=== PATIENT | male | born 2000 | race Caucasian/White ===

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

== ENCOUNTER → 2021-02-16 14:30 | Outpatient (BNVA) | payer BC, SELFPAY | PROVIDERS: PCP Family Medicine; Visit Provider Psychiatry & Neurology Psychiatry | DX: F33.2 Major depressive disorder, recurrent severe without psychotic features (principal); F60.3 Borderline personality disorder; F12.20 Cannabis dependence, uncomplicated | CPT/HCPCS: 99204 ==

== ENCOUNTER → 2021-03-28 16:14 | Outpatient (BNVA) | payer BC, SELFPAY | PROVIDERS: PCP Family Medicine; Visit Provider Nurse Practitioner Family | DX: J02.9 Acute pharyngitis, unspecified (principal) | CPT/HCPCS: 87071; 87880 ==

== ENCOUNTER 2021-04-11 00:25 | Emergency (ER) | payer BC, SELFPAY ==
[2021-04-11 00:39] VITALS: BP 103/60; PULSE 72; RESP 18; TEMP 37; O2SAT 98; BMI 19.6
--- NOTE | 2021-04-11 02:19 | ED_ITS ---
HPI - General Adult General: Chief complaint: General Medical Stated complaint: Chewing food then Throat started bleeding Time Seen by Provider: 04/11/21 02:01 History of Present Illness: HPI narrative: Patient is a 20-year-old male comes to the ED with throat pain and bleeding. Patient says that he was eating some chicken wings tonight and then felt something in the back of his throat and he put his finger back there and there was a little bit of red blood. Patient was diagnosed with pharyngitis on March 28 and was put on levofloxacin to treat pharyngitis. Patient completed his last dose of levofloxacin several days ago. He said his sore throat has improved greatly, but does endorse some mild throat soreness still. He also endorses some nasal drainage and congestion. Denies any fever, chills, coughing up blood, shortness of breath, chest pain, abdominal pain, nausea/vomiting, bladder or bowel symptoms. Associated symptoms: Deny chest pain, dyspnea, headache(s), nausea, rash, palp itations or vomiting Review of Systems Const: Denies: fever(s), chills or fatigue Eyes: Denies: change in vision or eye discomfort ENMT: Reports: throat pain; Denies: odynophagia, nasal discharge or nasal congestion Card: Denies: chest pain, palpitations, edema, swelling of feet/ankles, dyspnea on exertion or orthopnea Resp: Denies: dyspnea, productive cough or non-productive cough GI: Denies: abdominal pain, nausea, vomiting, diarrhea, constipation or hematochezia : Denies: flank pain, difficulty urinating, dysuria or hematuria Musc: Denies: neck pain, back pain or extremity swelling Skin/Breast: Denies: rash or new lesions Neuro: Denies: headache(s), numbness in extremities or weakness in extremities PFSH ED PFSH: Social History Smoking and tobacco status: current every day smoker Desire information about substance/drug rehabilitation?: No Adopted: No Marital status: Single Highest education level completed: High School Graduate Current occupational status: employed Physical Exam Const: COMMON NORMALS: no acute distress, patient oriented x3, healthy appearing and alert GENERAL APPEARANCE: cooperative and comfortable HENMT: COMMON NORMALS: normocephalic HEAD & SCALP: normocephalic MOUTH: Normal oral and palatal mucosa present THROAT: uvula midline and posterior oropharynx abnormal (No bleeding seen.) cobblestoning and edema; no foreign body Eye: COMMON NORMALS: Equal, round and reactive pupils present PUPIL: Yes Equal, round and reactive pupils present Neck/C-Spine: COMMON NORMALS: supple GENERAL: Yes normal visual inspection Resp: COMMON NORMALS: normal respiratory effort, No retractions, No use of accessory muscles and clear to auscultation bilaterally AUSCULTATION: clear to auscultation bilaterally Cardio: COMMON NORMALS: regular rate, regular rhythm, S1 normal heart sound present, S2 normal heart sound present, No gallops present (Cardio), No clicks present (Cardio), No murmurs present (Cardio) and Peripheral pulses 2+ throughout RATE: regular rate RHYTHM: regular rhythm HEART SOUNDS: S1 normal heart sound present and S2 normal heart sound present PERIPHERAL PULSES: Peripheral pulses 2+ throughout GI: COMMON NORMALS: Normal to inspection, nondistended, normoactive bowel sounds present, Soft to palpation, non-tender and no masses PALPATION: Yes Soft to palpation : COMMON NORMALS: Yes no CVA tenderness BLADDER/KIDNEY EXAM: Yes no CVA tenderness Back/Pelvis: COMMON NORMALS: no CVA tenderness Extremity: COMMON NORMALS: normal to inspection Neuro: COMMON NORMALS: patient oriented x3 and moves all extremities SENSORIUM/ORIENTATION: Yes alert Skin: GENERAL SKIN EXAM: dry skin Course Vital Signs: Vital signs: Vital Signs Temperature 98.6 F 04/11/21 00:39 Pulse Rate 72 04/11/21 00:39 Respiratory Rate 18 04/11/21 00:39 Blood Pressure 103/60 04/11/21 00:39 Pulse Oximetry 98 04/11/21 00:39 MDM - General Adult MDM Narrative: Medical decision making narrative: Patient is a healthy nontoxic-appearing 20-year-old male comes to the ED with throat pain and some bleeding at the back of throat. Patient was eating chicken wings and he felt something in the back of his throat and he put his finger back there and he had a little bit of red blood on his finger. Patient was recently treated for pharyngitis with levofloxacin and finished taking his antibiotic a couple days ago. His throat pain has improved greatly since completing antibiotic. Here in the ED patient's posterior oropharynx has some cobblestoning and edema seen. No foreign body or bleeding noted. Vitals stable. Patient diagnosed with irritated throat and discharged home. He was told to follow-up with his PCP in 7 to 10 days reevaluation. Return to ED precautions given. Patient understood and agree with plan. Discharge Plan Discharge Patient Disposition: Home Clinical Impression: Irritated throat Condition: Stable Prescriptions: No Action levofloxacin 500 mg tablet 500 mg PO Q24H Qty: 7 RF: 0 escitalopram oxalate [Lexapro] 20 mg tablet 20 mg PO DAILY Qty: 30 RF: 2 trazodone 50 mg tablet 100 mg PO .HS PRN (Reason: insomnia) Qty: 60 RF: 2 Discharge Orders: Discharge ED (Routine); Ordered 04/11/21 Ordered By: Bunny Jain Referrals: Geneva Ponce MD [Primary Care Provider] - Discharge Diet: Regular Discharge Activity: Resume usual activity Activity Restrictions/Additional Instructions: Follow-up with medical provider as directed in 7 to 10 days for reevaluation. Take [id number] ibuprofen or Tylenol for any pain. Return to the ER or your medical provider if condition worsens. Please read and understand discharge instructions. Thank you for choosing [facility] for your healthcare needs today. Please realize this is an emergency room and that we are providing you with a medical screening exam and this may not be complete and all inclusive of all the testing and or work up that you may need to determine your ailment or severity of your illness. It is very important that you follow up as instructed or that you return to the Emergency Department should you have concerns or if your condition changes or worsens in any way. Coding Level of Care Code ED Riffler Tender for Kaushal Rosa
[2021-04-11 02:24] VITALS: BP 112/78; PULSE 68; RESP 16; O2SAT 99
== END 2021-04-11 02:25 | disposition home or self-care (01) ==
PROVIDERS: Emergency Provider Physician Assistant; PCP Family Medicine
DX: J39.2 Other diseases of pharynx (principal); F17.200 Nicotine dependence, unspecified, uncomplicated
CPT/HCPCS: 99281

== ENCOUNTER → 2021-04-18 10:18 | Outpatient (BNVA) | payer BC, SELFPAY | PROVIDERS: PCP Family Medicine; Visit Provider Psychiatry & Neurology Psychiatry | DX: F60.3 Borderline personality disorder (principal); F33.2 Major depressive disorder, recurrent severe without psychotic features; F12.20 Cannabis dependence, uncomplicated | CPT/HCPCS: 99214 ==

== ENCOUNTER 2021-04-26 00:17 | Emergency (ER) | payer BC, MEDICAID, SELFPAY ==
[2021-04-26 00:18] VITALS: BP 123/63; PULSE 86; RESP 18; TEMP 37.4; O2SAT 96; BMI 19.9
--- NOTE | 2021-04-26 00:28 | ECG_ITS ---
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
--- NOTE | 2021-04-26 00:32 | W.ED.NAVMDI ---
HPI - Nausea/Vomiting/Diarrhea General: Chief complaint: Nausea/Vomiting/Diarrhea Stated complaint: DRUG USE/NAUSEA Time Seen by Provider: 04/26/21 00:18 Source: patient and EMS Mode of arrival: EMS Limitations: no limitations History of Present Illness: HPI Narrative: 20-year-old male states he did 2 g of cocaine roughly an hour and half to 2 hours ago. He states he started with some diaphoresis and nausea and vomiting. He states that he started to feel improved currently. He states he was getting concerned that he done too much. Patient is resting comfortably currently. He has no chest pain. Denies any shortness of breath. Denies any worsening improving factors. Associated nausea: Yes Associated symtoms: Reports nausea; Denies chest pain, dysuria or headache(s) Review of Systems Const: Denies: fever(s), chills, body aches or change in appetite Eyes: Denies: blurry vision or eye discomfort ENMT: Denies: throat pain or dental pain Card: Denies: chest pain Resp: Denies: dyspnea GI: Reports: nausea and vomiting : Denies: dysuria Musc: Denies: neck pain or back pain Skin/Breast: Denies: rash Neuro: Denies: headache(s) Psych: Denies: depression Oli/Lymph: Denies: easy bruising All/Imm: Denies: urticaria PFS ED PFSH: Social History (Updated 04/18/21 @ 10:36 by River Murray LPN) Smoking and tobacco status: current every day smoker Desire information about substance/drug rehabilitation?: No Adopted: No Marital status: Single Highest education level completed: High School Graduate Current occupational status: employed Physical Exam Const: COMMON NORMALS: no acute distress, patient oriented x3 and healthy appearing HENMT: COMMON NORMALS: normocephalic and atraumatic HEAD & SCALP: normocephalic and atraumatic Eye: COMMON NORMALS: Equal, round and reactive pupils present and EOMs intact bilaterally PUPIL: Yes Equal, round and reactive pupils present Neck/C-Spine: COMMON NORMALS: full ROM and supple Chest: COMMONS NORMALS: normal inspection of the chest and normal palpation of entire chest wall Resp: COMMON NORMALS: normal respiratory effort, No retractions, No use of accessory muscles and clear to auscultation bilaterally AUSCULTATION: clear to auscultation bilaterally Cardio: COMMON NORMALS: regular rate, regular rhythm and No murmurs present (Cardio) RATE: regular rate RHYTHM: regular rhythm GI: COMMON NORMALS: Normal to inspection, nondistended, normoactive bowel sounds present, Soft to palpation, non-tender and no masses PALPATION: Yes Soft to palpation Extremity: COMMON NORMALS: normal to inspection and full ROM Neuro: COMMON NORMALS: patient oriented x3, moves all extremities and no focal motor deficits Psych: COMMON NORMALS: mental status grossly normal, Normal thought process present and cooperative THOUGHT PROCESS: Normal thought process present Skin: COMMON NORMALS: no rashes or lesions noted and no wounds GENERAL SKIN EXAM: no rashes or lesions noted Course Vital Signs: Vital signs: Vital Signs Temperature 99.3 F 04/26/21 00:18 Pulse Rate 86 04/26/21 00:18 Respiratory Rate 18 04/26/21 00:18 Blood Pressure 123/63 04/26/21 00:18 Pulse Oximetry 96 04/26/21 00:18 MDM - Nausea/Vomiting/Diarrhea MDM Narrative: Medical decision making narrative: Patient presents with cocaine use. He has no signs of overdose. Patient is well-appearing here and feels much improved. He is stable for discharge is to follow-up with PCP and return if worsening. EKG Data^: EKG 1: Attestation: I personally reviewed and interpreted this EKG as follows: EKG interpretation date: 04/26/21 EKG interpretation time: 00:39 Interpretation: nsr hr [address] or t wave abnormalities qrs 90 qtc 386 Discharge Plan Discharge Patient Disposition: Home Clinical Impression: Cocaine abuse Condition: Stable Prescriptions: No Action escitalopram oxalate [Lexapro] 20 mg tablet 20 mg PO DAILY Qty: 30 RF: 2 trazodone 50 mg tablet 100 mg PO .HS PRN (Reason: insomnia) Qty: 60 RF: 2 propranolol 20 mg tablet 20 mg PO BID PRN (Reason: anxiety) Qty: 60 RF: 2 levofloxacin 500 mg tablet 500 mg PO Q24H Qty: 7 RF: 0 Discharge Orders: Discharge ED (Routine); Ordered 04/26/21 Ordered By: Vern Parra Referrals: Geneva Ponce MD [Primary Care Provider] - 1-3 days Discharge Diet: Advance as tolerated Discharge Activity: Resume usual activity Patient Instructions: Cocaine Abuse (ED) Coding Level of Care Code ED Trimming Press Operator for Kaushal Fwd Exam Comprehensive
[2021-04-26 00:54] VITALS: BP 116/60; PULSE 75; RESP 16; O2SAT 95
[2021-04-26] MEDS: LORazepam 2 mg/mL INJ 1 mL 1 MG IVP (00:54)
[2021-04-26 00:56] VITALS: BP 116/60; PULSE 75; RESP 16; TEMP 37.4; O2SAT 95
== END 2021-04-26 01:02 | disposition home or self-care (01) ==
PROVIDERS: Emergency Provider Emergency Medicine; PCP Family Medicine
DX: F14.10 Cocaine abuse, uncomplicated (principal); F17.200 Nicotine dependence, unspecified, uncomplicated
CPT/HCPCS: 93005; 96374; 99283; J2060

== ENCOUNTER → 2021-06-12 16:03 | Outpatient (BNVA) | payer BC, MEDICAID, SELFPAY | PROVIDERS: PCP Family Medicine; Visit Provider Family Medicine | DX: J02.9 Acute pharyngitis, unspecified (principal); H66.93 Otitis media, unspecified, bilateral | CPT/HCPCS: 87071; 87880 ==

== ENCOUNTER → 2021-07-04 09:52 | Outpatient (BNVA) | payer BC, SELFPAY | PROVIDERS: PCP Family Medicine; Visit Provider Psychiatry & Neurology Psychiatry | DX: F60.3 Borderline personality disorder (principal); F12.20 Cannabis dependence, uncomplicated; F33.2 Major depressive disorder, recurrent severe without psychotic features | CPT/HCPCS: 99213 ==

== ENCOUNTER 2021-08-24 13:16 | Emergency (ER) | payer BC, MEDICAID, SELFPAY ==
[2021-08-24 13:48] VITALS: BP 118/59; PULSE 76; RESP 16; TEMP 36.7; O2SAT 97
--- NOTE | 2021-08-24 13:58 | ED_ITS ---
HPI - Ear Problem General: Chief complaint: Ear Stated complaint: BLOOD COMING OUT OF [facility] EAR/PAINFUL Time Seen by Provider: 08/24/21 13:46 History of Present Illness: HPI Narrative: Patient had blood in his right ear canal today. Denies any recent infection but was treated for ear infection 2 months ago. Complaint: other (Blood in ear canal) Location: right ear Severity: mild Associated symptoms: Denies fever(s) or headache(s) Review of Systems Const: Denies: fever(s), chills or body aches Eyes: Denies: change in vision or blurry vision ENMT: Reports: other (Blood in ear canal on right side since this morning); Denies: throat pain or nasal congestion Card: Denies: chest pain or dyspnea on exertion Resp: Denies: dyspnea, productive cough or non-productive cough GI: Reports: abdominal pain, nausea and vomiting : Reports: difficulty urinating Musc: Reports: extremity pain Skin/Breast: Denies: rash Neuro: Denies: headache(s) Psych: Denies: anxiety or depression Oli/Lymph: Denies: easy bruising PFSH ED PFSH: Medical History Psychiatric care Social History Smoking and tobacco status: current every day smoker Desire information about substance/drug rehabilitation?: No Adopted: No Marital status: Single Highest education level completed: High School Graduate Current occupational status: employed Physical Exam Const: COMMON NORMALS: no acute distress GENERAL APPEARANCE: cooperative HENMT: COMMON NORMALS: external ears normal and TM's normal bilaterally EXTERNAL EAR: Yes external ears normal EXTERNAL AUDITORY CANAL: Abnormal EAC present EAC laterality: right (Peers to be an abrasion with dried blood in the canal) TYMPANIC MEMBRANE: TM's normal bilaterally THROAT: posterior oropharynx normal Resp: COMMON NORMALS: normal respiratory effort Psych: COMMON NORMALS: mental status grossly normal APPEARANCE: Yes grossly normal Course Vital Signs: Vital signs: Vital Signs Temperature 98.1 F 08/24/21 13:48 Pulse Rate 76 08/24/21 13:48 Respiratory Rate 16 08/24/21 13:48 Blood Pressure 118/59 08/24/21 13:48 Pulse Oximetry 97 08/24/21 13:48 Discharge Plan Discharge Patient Disposition: Home Clinical Impression: Abrasion of ear canal Qualifiers: Encounter type: initial encounter Laterality: right Qualified Code(s): S00.411A - Abrasion of right ear, initial encounter Condition: Stable Prescriptions: New [id number]-[id number]-XB 3.5-10,000-1 mg/mL-unit/mL-% solution 4 drp otic (ear) Q8H 3 Days Qty: 10 RF: 0 No Action propranolol 20 mg tablet 20 mg PO BID PRN (Reason: anxiety) Qty: 60 RF: 2 escitalopram oxalate [Lexapro] 20 mg tablet 20 mg PO DAILY Qty: 30 RF: 2 trazodone 50 mg tablet 100 mg PO .HS PRN (Reason: insomnia) Qty: 60 RF: 2 Discharge Orders: Discharge ED (Routine); Ordered 08/24/21 Ordered By: Pavel Hernandez Referrals: Geneva Ponce MD [Primary Care Provider] - Discharge Diet: Usual diet Discharge Activity: Resume usual activity Patient Instructions: Ear Abrasion (ED) Activity Restrictions/Additional Instructions: Follow-up with medical provider as directed. Take medications as prescribed. Return to the ER or your medical provider if condition worsens. Please read and understand discharge instructions. If any questions ask please. Coding Level of Care Code ED Partnership Marketing Manager for Kaushal Rosa
== END 2021-08-24 14:17 | disposition home or self-care (01) ==
PROVIDERS: Emergency Provider Nurse Practitioner Family; PCP Family Medicine
DX: S00.411A Abrasion of right ear, initial encounter (principal); X58.XXXA Exposure to other specified factors, initial encounter; F17.210 Nicotine dependence, cigarettes, uncomplicated
CPT/HCPCS: 99281

== ENCOUNTER → 2021-09-26 10:15 | Outpatient (BNVA) | payer BC, MEDICAID, SELFPAY | PROVIDERS: PCP Family Medicine; Visit Provider Psychiatry & Neurology Psychiatry | DX: F33.2 Major depressive disorder, recurrent severe without psychotic features (principal); F60.3 Borderline personality disorder; F12.20 Cannabis dependence, uncomplicated | CPT/HCPCS: 99213 ==

== ENCOUNTER → 2021-12-21 09:38 | Outpatient (BNVA) | payer BC, MEDICAID, SELFPAY | PROVIDERS: PCP Family Medicine; Visit Provider Psychiatry & Neurology Psychiatry | DX: F60.3 Borderline personality disorder (principal); F33.2 Major depressive disorder, recurrent severe without psychotic features; F12.20 Cannabis dependence, uncomplicated | CPT/HCPCS: 99213 ==

== ENCOUNTER → 2022-03-26 07:15 | Outpatient (BNVA) | payer BC, MEDICAID, SELFPAY | PROVIDERS: PCP Family Medicine; Visit Provider Otolaryngology | DX: H66.93 Otitis media, unspecified, bilateral (principal); F17.210 Nicotine dependence, cigarettes, uncomplicated | CPT/HCPCS: 99202; 99203 ==

== ENCOUNTER 2022-08-27 22:14 | Emergency (ER) | payer BC, MEDICAID, SELFPAY ==
[2022-08-27 22:17] VITALS: BP 132/72; PULSE 101; RESP 17; TEMP 36.7; O2SAT 96; BMI 19.9
[2022-08-27 22:21] VITALS: BP 132/72; PULSE 87; RESP 20; O2SAT 97
--- NOTE | 2022-08-27 22:25 | CTR_ITS ---
PROCEDURE INFORMATION: Exam: CT Abdomen And Pelvis Without Contrast Exam date and time: 08/27/2022 10:31 PM Age: 22 years old Clinical indication: Abdominal pain; Right; Patient HX: RT flank pain with dysuria; Additional info: Right flank pain TECHNIQUE: Imaging protocol: Computed tomography of the abdomen and pelvis without contrast. Radiation optimization: All CT scans at this facility use at least one of these dose optimization techniques: automated exposure control; mA and/or kV adjustment per patient size (includes targeted exams where dose is matched to clinical indication); or iterative reconstruction. COMPARISON: CR XR pelvis 1-2V* [id number] 06/05/2019 6:24 PM RADIATION DOSE METRICS: Total DLP (mGy-cm): 368.73 FINDINGS: Lungs: The visualized lung bases are clear. Liver: Unremarkable. No discrete mass. Gallbladder and bile ducts: No calcified gallstones or biliary dilation identified. Pancreas: Unremarkable with no suspicious mass. No ductal dilation. Spleen: The spleen is not enlarged. No suspicious mass is noted. Adrenal glands: Normal. No mass. Kidneys and ureters: A few tiny bilateral kidney stones measure up to about 2 mm. Stomach and bowel: No small bowel obstruction or free air. No overt mucosal thickening. Appendix: No evidence of appendicitis. Intraperitoneal space: Unremarkable. No free air. No suspicious fluid collection. Vasculature: Multiple small pelvic phleboliths are visualized. These appear to be inferolateral to the course of either ureter. Lymph nodes: No enlarged lymph nodes. Urinary bladder: Bladder wall is thickened up to about 7 mm. Reproductive: Unremarkable as visualized. Bones/joints: No acute fracture. Soft tissues: No acute or suspicious finding noted. CT/CT kidney stone [id number] IMPRESSION: 1. Minor bilateral nephrolithiasis. No hydroureter. 2. No definite ureteral stones are seen. Multiple pelvic calcifications are probably phleboliths. If there is concern for a nonobstructing distal ureteral calculus, a follow-up nonemergent CT urogram could be considered. 3. Possible cystitis, advise correlation. 4. Mild constipation.
--- NOTE | 2022-08-27 22:25 | ED_ITS ---
HPI - Male Genitourinary General: Chief complaint: Urogenital-Male Stated complaint: FLANK PAIN Time Seen by Provider: 08/27/22 22:16 History of Present Illness: 22-year-old male patient comes in today for complaints of right flank pain starting yesterday with worsening symptoms start ing about 4:00 this evening. Patient reports a change in his color of his urine. Patient reports no fever. Patient was given medication for pain and nausea in route to the ER. Associated symptoms: Reports nausea Review of Systems General: Reports: 10 or more systems reviewed and unremarkable except in HPI and below GI: Reports: abdominal pain and nausea : Reports: flank pain PFSH ED PFSH: Medical History Psychiatric care Surgical History History of myringotomy Bi tube placement x2 Social History (Updated 06/28/22 @ 10:38 by River Murray LPN) Smoking and tobacco status: current some day smoker e-cigarettes E-Cigarette Details: vaporizer device and with nicotine E-cig/vape details: Refill/ 2 weeks. Second hand smoke exposure: No Smoking risk assessment/counseling performed?: No Alcohol intake: current Alcohol intake frequency: holidays/special occasions only Alcohol type: hard liquor Desire information about alcohol rehabilitation?: No Counseling given: Yes Other alcohol counseling details: Advised alcohol and medications don't mix. Desire information about substance/drug rehabilitation?: No Counseling given: No Adopted: No Marital status: Single Highest education level completed: High School Graduate Current occupational status: employed Physical Exam Const: COMMON NORMALS: alert HENMT: COMMON NORMALS: normocephalic HEAD & SCALP: normocephalic Neck/C-Spine: COMMON NORMALS: full ROM Resp: COMMON NORMALS: normal respiratory effort and clear to auscultation bilaterally AUSCULTATION: clear to auscultation bilaterally Cardio: COMMON NORMALS: regular rate and regular rhythm RATE: regular rate RHYTHM: regular rhythm GI: COMMON NORMALS: Soft to palpation PALPATION: Yes Soft to palpation and Yes Tenderness to palpation present (GI) (Minimal tenderness suprapubic) : COMMON NORMALS: Yes no CVA tenderness BLADDER/KIDNEY EXAM: Yes no CVA tenderness Back/Pelvis: COMMON NORMALS: no CVA tenderness Neuro: SENSORIUM/ORIENTATION: Yes alert Skin: COMMON NORMALS: turgor normal GENERAL SKIN EXAM: turgor normal Course Vital Signs: Vital signs: Vital Signs Temperature 98.0 F 08/27/22 22:17 Pulse Rate 96 08/27/22 23:26 Respiratory Rate 18 08/27/22 23:26 Blood Pressure 128/78 08/27/22 23:26 Pulse Oximetry 97 08/27/22 23:26 Oxygen Delivery Me thod 08/27/22 22:21 MDM - Male Medical Decision Making Patient comes in today with complaints of flank pain on the right radiating into the groin with increased difficulty urinating. Patient reports symptoms for the last 24 hours. On exam patient appears nontoxic. Abdomen is got some suprapubic tenderness. No CVA tenderness is noted on palpation. Differential diagnosis includes not limited to renal calculi, appendicitis, urinary tract infection, constipation. Urinalysis showed a large amount of red blood cells and white blood cells. CBC and CMP were unremarkable. CT of the abdomen pelvis noted some thickening of the bladder wall but no signs of obstructive renal ca lculi or other abnormalities. Believe the patient probably has a urinary tract infection/cystitis. We will treat with Levaquin due to patient's allergies. Recommend follow-up with primary care return to ED for worsening symptoms or new concerns. Patient reported understanding. Lab Data 08/27/22 22:15 08/27/22 22:15 Radiology Impressions Abdomen/Pelvis CT 08/27/22 22:25 IMPRESSION: 1. Minor bilateral nephrolithiasis. No hydroureter. 2. No definite ureteral stones are seen. Multiple pelvic calcifications are probably phleboliths. If there is concern for a nonobstructing distal ureteral calculus, a follow-up nonemergent CT urogram could be considered. 3. Possible cystitis, advise correlation. 4. Mild constipation. Laboratory Results WBC 9.1 10^3/uL (4.0-10.0) 08/27/22 22:15 RBC 4.31 10^6/uL (4.1-5.3) 08/27/22 22:15 Hgb 13.1 g/dL (11.7-16.6) 08/27/22 22:15 Hct 38.5 % (42.0-52.0) L 08/27/22 22:15 MCV 89.3 fl (80-94) 08/27/22 22:15 MCH 30.4 pg (28.0-34.0) 08/27/22 22:15 MCHC 34.0 g/dL (30.0-36.0) 08/27/22 22:15 RDW 11.7 % (12.1-15.1) L 08/27/22 22:15 Plt Count 232 10^3/cmm (130-400) 08/27/22 22:15 MPV 9.5 fL (7.4-10.4) 08/27/22 22:15 Neut % (Auto) 66.3 % 08/27/22 22:15 Lymph % (Auto) 25.9 % 08/27/22 22:15 [place] % (Auto) 6.1 % 08/27/22 22:15 Eos % (Auto) 1.1 % 08/27/22 22:15 Baso % (Auto) 0.4 % 08/27/22 22:15 Neut # (Auto) 6.04 10^3/uL (1.8-7.7) 08/27/22 22:15 Lymph # (Auto) 2.4 10^3/uL (0.8-4.8) 08/27/22 22:15 [place] # (Auto) 0.6 10^3/uL (0.2-0.9) 08/27/22 22:15 Eos # (Auto) 0.1 10^3/uL (0.0-0.8) 08/27/22 22:15 Baso # (Auto) 0.0 10^3/uL (0.0-0.1) 08/27/22 22:15 Nucleated RBC % (auto) 0 % 08/27/22 22:15 Nucleated RBCs # 0.0 /100WBC 08/27/22 22:15 Sodium 139 mmol/L (136-145) 08/27/22 22:15 Potassium 3.5 mmol/L (3.5-5.1) 08/27/22 22:15 Chloride 107 mmol/L (98-107) 08/27/22 22:15 Carbon Dioxide 24 mmol/L (22-29) 08/27/22 22:15 Anion Gap 11.5 (5-19) 08/27/22 22:15 BUN 13 mg/dL (6-20) 08/27/22 22:15 Creatinine 0.9 mg/dL (0.7-1.2) 08/27/22 22:15 GFR Calculation 106.5 mL/min (90-130) 08/27/22 22:15 Glucose 77 mg/dL (65-115) 08/27/22 22:15 Calculated Osmolality 287 mOsm/kg (285-295) 08/27/22 22:15 Calcium 8.5 mg/dL (8.5-10.5) 08/27/22 22:15 Total Bilirubin 0.3 mg/dL (0.15-1.2) 08/27/22 22:15 AST 18 U/L (0-40) 08/27/22 22:15 ALT 11 U/L (0-41) 08/27/22 22:15 Alkaline Phosphatase 74 U/L (40-130) 08/27/22 22:15 Total Protein 6.5 g/dL (6.6-8.7) L 08/27/22 22:15 Albumin 4.1 g/dL (3.5-5.2) 08/27/22 22:15 Globulin 2.4 g/dL (1.3-4.6) 08/27/22 22:15 Lipase 19 U/L (13-60) 08/27/22 22:15 Urine Color Dark yellow (Yellow) 08/27/22 22:28 Urine Appearance Cloudy (CLEAR) A 08/27/22 22:28 Urine pH 7 (5-7) 08/27/22 22:28 Ur Specific [place] 1.015 (1.005-1.030) 08/27/22 22:28 Urine Protein 2+ (Negative) H 08/27/22 22:28 Urine Glucose (UA) Norm (Normal) 08/27/22 22: Urine Ketones Negative (Negative) 08/27/22 22: Urine Blood 3+ (Negative) H 08/27/22 22:28 Urine Nitrate Negative (Negative) 08/27/22 22: Urine Bilirubin Neg (Negative) 08/27/22 22: Urine Urobilinogen 1 mg/dL (Negative) H 08/27/22 22:28 Ur Leukocyte Esterase 2+ (Negative) H 12/26/22 22:28 Urine RBC Too numerous to cnt /hpf (0-2) H 08/27/22 22:28 Urine WBC Too numerous to cnt /hpf (0-5) H 08/27/22 22:28 Ur Squamous Epith Cells 0-4 /hpf (0-5) H 08/27/22 22:28 Amorphous Sediment Not Reportable 08/27/22 22:28 Urine Bacteria 2+ /hpf (NONE) H 08/27/22 22:28 Discharge Plan Discharge Patient Disposition: Home Clinical Impression: Cystitis Condition: Stable Prescriptions: New levofloxacin 500 mg tablet 500 mg PO DAILY 9 Days Qty: 9 0RF No Action propranolol 20 mg tablet 20 mg PO BID PRN (Reason: anxiety) Qty: 60 2RF trazodone 50 mg tablet 100 mg PO .HS PRN (Reason: insomnia) Qty: 60 2RF albuterol sulfate [ProAir HFA] 90 mcg/actuation HFA aerosol inhaler 2 puff inhalation QID PRN (Reason: shortness of breath or wheezing) Qty: 8.5 0RF escitalopram oxalate [Lexapro] 20 mg tablet 20 mg PO DAILY Qty: 90 0RF Discharge Orders: Discharge ED (Routine); Ordered 08/27/22 Ordered By: Reid Butcher Referrals: Geneva Ponce MD [Primary Care Provider] - Discharge Diet: Usual diet Discharge Activity: Increase activity as tolerated Patient Instructions: Urinary Tract Infection in Men (ED) Activity Restrictions/Additional Instructions: Home and rest. Drink plenty of fluids. Take antibiotics as directed for the next 9 days. Use acetaminophen and ibuprofen for pain and discomfort. Follow- up with primary care in 2 to 3 days for recheck. Return to the emergency department for worsening symptoms such as inability to hold fluids down, increasing discomfort, or new concerns. Coding Level of Care Code ED Site Damage Prevention Technician for Chg Fwd Exam Comprehensive
[2022-08-27 22:28] LABS: Basophils % 0.4 %; Eosinophils # 0.1 10^3/uL (0.0-0.8); Eosinophils % 1.1 %; Hematocrit 38.5 % (42.0-52.0); Hemoglobin 13.1 g/dL (11.7-16.6); Lymphocytes # 2.4 10^3/uL (0.8-4.8); Lymphocytes % 25.9 %; Mean Corpuscular Hemoglobin 30.4 pg (28.0-34.0); Mean Corpuscular Volume 89.3 fl (80-94); Mean Platelet Volume 9.5 fL (7.4-10.4); Monocytes # 0.6 10^3/uL (0.2-0.9); Monocytes % 6.1 %; Neutrophils # 6.04 10^3/uL (1.8-7.7); Neutrophils % 66.3 %; Nucleated Red Blood Cells % 0 %; Platelet Count 232 10^3/cmm (130-400); Red Blood Count 4.31 10^6/uL (4.1-5.3); Red Cell Distribution Width 11.7 % (12.1-15.1); White Blood Count 9.1 10^3/uL (4.0-10.0)
[2022-08-27 22:45] LABS: Alanine Aminotransferase 11 U/L (0-41); Albumin Level 4.1 g/dL (3.5-5.2); Alkaline Phosphatase 74 U/L (40-130); Anion Gap 11.5 (5-19); Aspartate Amino Transferase 18 U/L (0-40); Blood Urea Nitrogen 13 mg/dL (6-20); Calcium 8.5 mg/dL (8.5-10.5); Carbon Dioxide 24 mmol/L (22-29); Chloride 107 mmol/L (98-107); Globulin 2.4 g/dL (1.3-4.6); Glomerular Filtration Rate 106.5 mL/min (90-130); Glucose 77 mg/dL (65-115); Lipase 19 U/L (13-60); Osmolality Calculated 287 mOsm/kg (285-295); Potassium 3.5 mmol/L (3.5-5.1); Sodium 139 mmol/L (136-145); Total Bilirubin 0.3 mg/dL (0.15-1.2); Total Protein 6.5 g/dL (6.6-8.7)
[2022-08-27 22:56] LABS: Add Urine Microscopic? YES; Bilirubin Urine Neg (Negative); Blood Urine 3+ (Negative); Glucose Urine UA Norm (Normal); Ketones Urine Negative (Negative); Leukocyte Esterase Urine 2+ (Negative); Nitrate Urine Negative (Negative); Protein Urine 2+ (Negative); Specific Gravity, Urine 1.015 (1.005-1.030); Urine Appearance Cloudy (CLEAR); Urine Color Dark yellow (Yellow); Urobilinogen Urine 1 mg/dL (Negative); pH Urine 7 (5-7)
[2022-08-27 22:57] LABS: Add Urine Culture? Yes; Bacteria Urine 2+ /hpf; RBC Urine TOO NUMEROUS TO CNT /hpf (0-2); Squamous Epithelial Cell Urine 0-4 /hpf (0-5); WBC Urine TOO NUMEROUS TO CNT /hpf (0-5)
[2022-08-27] MEDS: levoFLOXacin 750 mg Tablet PO (23:04)
[2022-08-27] MEDS: sodium chloride 0.9% 500 ML 999 ML IV (23:04)
[2022-08-27 23:26] VITALS: BP 128/78; PULSE 96; RESP 18; O2SAT 97
== END 2022-08-27 23:27 | disposition home or self-care (01) ==
PROVIDERS: Emergency Provider Nurse Practitioner Family; PCP Family Medicine
DX: N30.90 Cystitis, unspecified without hematuria (principal); F17.290 Nicotine dependence, other tobacco product, uncomplicated
CPT/HCPCS: 74176; 80053; 81001; 83690; 85025; 87077; 87086; 87186; 99284; J7040

== ENCOUNTER 2023-01-02 22:25 | Emergency (ER) | payer BC, MEDICAID, SELFPAY ==
[2023-01-02 22:28] VITALS: BP 117/77; PULSE 70; RESP 19; TEMP 36.3; O2SAT 98; BMI 19.9
--- NOTE | 2023-01-02 22:41 | ED_ITS ---
HPI - Animal Bite General: Chief Complaint: Animal Bite Stated Complaint: Bit by Possum Time Seen by Provider: 01/02/23 22:31 History of Present Illness: 22-year-old male patient comes in today for complaints of injury to the right middle finger. Patient was attempting to catch a possum when the animal bit him. Animal looked well. Animal appears in no acute distress. Patient cannot recall his last tetanus. Patient has superficial injury to the distal right middle finger. Associated symptoms: Deny headache(s) Review of Systems General: Reports: 10 or more systems reviewed and unremarkable except in HPI and below Card: Denies: chest pain Resp: Denies: dyspnea GI: Denies: abdominal pain Musc: Denies: extremity pain Skin/Breast: Reports: new lesions Neuro: Denies: headache(s) PFS ED PFSH: Medical History Psychiatric care Surgical History History of myringotomy Bi tube placement x2 Social History (Updated 06/28/22 @ 10:38 by River Murrya LPN) Smoking and tobacco status: current some day smoker e-cigarettes E-Cigarette Details: vaporizer device and with nicotine E-cig/vape details: Refill/ 2 weeks. Second hand smoke exposure: No Smoking risk assessment/counseling performed?: No Alcohol intake: current Alcohol intake frequency: holidays/special occasions only Alcohol type: hard liquor Desire information about alcohol rehabilitation?: No Counseling given: Yes Other alcohol counseling details: Advised alcohol and medications don't mix. Substance/Drug Use: former Date of last use: marijuana - last used 06/2022. everything else- over 8 months. Desire information about substance/drug rehabilitation?: No Counseling given: No Adopted: No Marital status: Single Highest education level completed: High School Graduate Current occupational status: employed Physical Exam Const: COMMON NORMALS: alert HENMT: COMMON NORMALS: atraumatic HEAD & SCALP: atraumatic Neck/C-Spine: COMMON NORMALS: full ROM Resp: COMMON NORMALS: normal respiratory effort and clear to auscultation bilaterally AUSCULTATION: clear to auscultation bilaterally Cardio: COMMON NORMALS: regular rate and regular rhythm RATE: regular rate RHYTHM: regular rhythm Back/Pelvis: COMMON NORMALS: thoracic and lumbar spine normal to inspection Extremity: RIGHT UPPER EXTREMITY: Yes hand & digits (2 puncture wounds noted to the distal right middle finger) Right hand and digits: Yes inspection, Yes palpation and Yes ROM exam Neuro: SENSORIUM/ORIENTATION: Yes alert Skin: TRAUMA: puncture Course Vital Signs: Vital signs: Vital Signs Temperature 97.4 F L 01/02/23 22:28 Pulse Rate 70 01/02/23 22:28 Respiratory Rate 19 H 01/02/23 22:28 Blood Pressure 117/77 01/02/23 22:28 Pulse Oximetry 98 01/02/23 22:28 Oxygen Delivery Me thod Room Air 01/02/23 22:28 MDM - Animal Bite Medical Decision Making 22-year-old male patient comes in today for injury to the distal right middle finger. On exam patient has normal range of motion. Patient has 2 superficial puncture wounds to the middle finger. Cap refill is intact. Patient appears nontoxic. Patient appears no acute distress. Differential diagnosis includes prophylaxis antibiotic need, animal bite, need for tetanus vaccine, need for postexposure rabies treatment. Reviewed the risk for rabies as being very low due to the animal being a possum and they not being carriers of rabies. Did suggest updating tetanus and starting on prophylaxis antibiotic. Using shared decision making patient decided to proceed with rabies postexposure prophylaxis. Discharge Plan Discharge Patient Disposition: Home Clinical Impression: Bite by animal Condition: Stable Prescriptions: New doxycycline monohydrate 100 mg capsule 100 mg PO BID 7 Days Qty: 14 0RF No Action propranolol 20 mg tablet 20 mg PO BID PRN (Reason: anxiety) Qty: 60 2RF trazodone 50 mg tablet 100 mg PO .HS PRN (Reason: insomnia) Qty: 60 2RF escitalopram oxalate [Lexapro] 20 mg tablet 20 mg PO DAILY Qty: 90 0RF Discharge Orders: Discharge ED (Routine); Ordered 01/02/23 Ordered By: Reid Butcher Referrals: Geneva Ponce MD [Primary Care Provider] - Discharge Diet: Usual diet Discharge Activity: Increase activity as tolerated Patient Instructions: Animal Bite (ED) Activity Restrictions/Additional Instructions: Clean wound twice a day with soap and water. Apply [id number] antibiotic ointment and cover with Band-Aid. Continue this until healed. Follow-up with primary care for further instructions. Return to ED for new concerns. You need to return on days 3, 7, and 14 to complete the rabies vaccination series. Coding Level of Care Code ED Ekg Technician for Kaushal Rosa
[2023-01-02] MEDS: tetanus-dipt-pertussis 0.5 mL SDV IM (23:16)
[2023-01-02] MEDS: bacitracin ointment Pkt 1 EACH TOPICAL (23:19)
[2023-01-02] MEDS: doxycycline 100 mg Tablet PO (23:19)
[2023-01-02] MEDS: rabies vaccine 2.5 unit SDV IM (23:20)
[2023-01-02 23:29] VITALS: BP 95/62; PULSE 67; RESP 16; O2SAT 96
[2023-01-02 23:59] VITALS: BP 106/48; PULSE 63; RESP 16; O2SAT 96
== END 2023-01-03 00:02 | disposition home or self-care (01) ==
PROVIDERS: Emergency Provider Nurse Practitioner Family; PCP Family Medicine
DX: S61.252A Open bite of right middle finger without damage to nail, initial encounter (principal); W55.81XA Bitten by other mammals, initial encounter; F17.290 Nicotine dependence, other tobacco product, uncomplicated; Z23 Encounter for immunization; Z29.14 Encounter for prophylactic rabies immune globulin; Z20.3 Contact with and (suspected) exposure to rabies
CPT/HCPCS: 90375; 90471; 90675; 90715; 99284

== ENCOUNTER 2023-01-05 19:21 | Emergency (ER) | payer BC, MEDICAID, SELFPAY ==
[2023-01-05 19:22] VITALS: BP 121/72; PULSE 60; RESP 18; TEMP 36.4; O2SAT 98
--- NOTE | 2023-01-05 20:21 | W.ED.ANIMALB ---
HPI - Animal Bite General: Chief Complaint: Animal Bite Stated Complaint: needs 2nd rabies vaccine Time Seen by Provider: 01/05/23 19:54 Source: patient Mode of arrival: ambulatory Limitations: no limitations History of Present Illness: Patient presents emergency department today for his second rabies postexposure prophylactic immunization. Patient was seen here in the emergency department on 01/02 after getting his finger bit by a possum. He indicated he did try and pet the animal when it bit him on the finger. Patient received his first round of immunizations that day as well as starting antibiotics. He has been taking care of his wound and has not noticed any swelling, redness, or draining from the site. He is here as instructed to receive his next round of immunizations. Review of Systems General: Reports: 10 or more systems reviewed and unremarkable except in HPI and below PFSH ED PFSH: Medical History Psychiatric care Surgical History History of myringotomy Bi tube placement x2 Social History Smoking and tobacco status: current some day smoker e-cigarettes E-Cigarette Details: vaporizer device and with nicotine E-cig/vape details: Refill/ 2 weeks. Second hand smoke exposure: No Smoking risk assessment/counseling performed?: No Alcohol intake: current Alcohol intake frequency: holidays/special occasions only Alcohol type: hard liquor Desire information about alcohol rehabilitation?: No Counseling given: Yes Other alcohol counseling details: Advised alcohol and medications don't mix. Substance/Drug Use: former Date of last use: marijuana - last used 06/2022. everything else- over 8 months. Desire information about substance/drug rehabilitation?: No Counseling given: No Adopted: No Marital status: Single Highest education level completed: High School Graduate Current occupational status: employed Physical Exam Const: COMMON NORMALS: no acute distress, patient oriented x3 and alert HENMT: COMMON NORMALS: normocephalic, atraumatic and hearing grossly normal bilaterally HEAD & SCALP: normocephalic and atraumatic Eye: COMMON NORMALS: Equal, round and reactive pupils present, EOMs intact bilaterally and conjunctivae normal CONJUNCTIVA: Yes conjunctivae normal PUPIL: Yes Equal, round and reactive pupils present Neck/C-Spine: COMMON NORMALS: full ROM and no JVD Lymph: LYMPHATIC: no lymphadenopathy noted Resp: COMMON NORMALS: normal respiratory effort, No retractions and No use of accessory muscles Cardio: COMMON NORMALS: no JVD and regular rate RATE: regular rate Extremity: NARRATIVE EXTREMITY EXAM: Patient has a small area of scabbing on his finger from the initial bite site. It is not red, swollen, and there are no signs of any purulent drainage. Patient demonstrates full mobility of the finger without any difficulty. Neuro: COMMON NORMALS: patient oriented x3 SENSORIUM/ORIENTATION: Yes alert Psych: COMMON NORMALS: mental status grossly normal, Normal thought process present, cooperative and normal affect THOUGHT PROCESS: Normal thought process present Skin: COMMON NORMALS: no rashes or lesions noted and turgor normal GENERAL SKIN EXAM: no rashes or lesions noted and turgor normal Course Vital Signs: Vital signs: Vital Signs Temperature 97.5 F L 01/05/23 19:22 Pulse Rate 60 01/05/23 19:22 Respiratory Rate 18 01/05/23 19:22 Blood Pressure 121/72 01/05/23 19:22 Pulse Oximetry 98 01/05/23 19:22 Oxygen Delivery Me thod Room Air 01/05/23 19:22 MDM - Animal Bite Medical Decision Making Patient presents to the ER today for his second rabies immunization in his series. Wound shows no acute concerns at this time and he was instructed to finish out his antibiotics. We also discussed returning on day #7 for his next immunization. Patient verbalized understanding and agreement to treatment plan. Differential Diagnosis Likely bite by animal and rabies contact Discharge Plan Discharge Patient Disposition: Home Clinical Impression: Need for post exposure prophylaxis for rabies Condition: Stable Prescriptions: No Action propranolol 20 mg tablet 20 mg PO BID PRN (Reason: anxiety) Qty: 60 2RF trazodone 50 mg tablet 100 mg PO .HS PRN (Reason: insomnia) Qty: 60 2RF escitalopram oxalate [Lexapro] 20 mg tablet 20 mg PO DAILY Qty: 90 0RF doxycycline monohydrate 100 mg capsule 100 mg PO BID 7 Days Qty: 14 0RF Discharge Orders: Discharge ED (Routine); Ordered 01/05/23 Ordered By: Billie Campbell Referrals: Geneva Ponce MD [Primary Care Provider] - Discharge Diet: Usual diet Discharge Activity: Increase activity as tolerated Patient Instructions: Rabies Vaccine (By injection) (Imovax Rabies, RabAvert) Activity Restrictions/Additional Instructions: Your original wound is looking well. Continue to continue monitoring and keeping it clean and dry. We will see you on day #7 for another rabies immunization shot. Coding Level of Care Code ED Ammunition Assembly Ii Laborer for Kaushal Rosa
[2023-01-05] MEDS: rabies vaccine 2.5 unit SDV IM (20:28)
== END 2023-01-05 20:30 | disposition home or self-care (01) ==
PROVIDERS: Emergency Provider Physician Assistant; PCP Family Medicine
DX: Z29.14 Encounter for prophylactic rabies immune globulin (principal); Z20.3 Contact with and (suspected) exposure to rabies; Z23 Encounter for immunization; F17.290 Nicotine dependence, other tobacco product, uncomplicated
CPT/HCPCS: 90471; 90675; 99283

== ENCOUNTER 2023-01-09 13:19 | Emergency (ER) | payer BC, MEDICAID, SELFPAY ==
[2023-01-09 14:10] VITALS: BP 84/57; PULSE 68; RESP 18; TEMP 36.7; O2SAT 98; BMI 19.9
--- NOTE | 2023-01-09 14:27 | W.ED.ANIMALB ---
HPI - Animal Bite General: Chief Complaint: Animal Bite Stated Complaint: 3rd rabies shot Time Seen by Provider: 01/09/23 14:17 History of Present Illness: Patient is a 22-year-old male who comes to the ED to get his third rabies shot. Patient was bitten by opossum in right hand and received rabies vaccination series back on January 02 and January 09. Patient is here to get his third rabies shot. He has not had any problems or side effects from previous shots. His bite on right hand is healing well and denies any other complaints. Associated symptoms: Deny chills, fever(s) or headache(s) Review of Systems Const: Denies: fever(s), chills or fatigue Eyes: Denies: change in vision or eye discomfort ENMT: Denies: throat pain, odynophagia, nasal discharge or nasal congestion Card: Denies: chest pain, palpitations, edema, swelling of feet/ankles, dyspnea on exertion or orthopnea Resp: Denies: dyspnea, productive cough or non-productive cough GI: Denies: abdominal pain, nausea, vomiting, diarrhea, constipation or hematochezia : Denies: flank pain, difficulty urinating, dysuria or hematuria Musc: Denies: neck pain, back pain or extremity swelling Skin/Breast: Denies: rash or new lesions Neuro: Denies: headache(s), numbness in extremities or weakness in extremities PFSH ED PFSH: Medical History Psychiatric care Surgical History History of myringotomy Bi tube placement x2 Social History Smoking and tobacco status: current some day smoker e-cigarettes E-Cigarette Details: vaporizer device and with nicotine E-cig/vape details: Refill/ 2 weeks. Second hand smoke exposure: No Smoking risk assessment/counseling performed?: No Alcohol intake: current Alcohol intake frequency: holidays/special occasions only Alcohol type: hard liquor Desire information about alcohol rehabilitation?: No Counseling given: Yes Other alcohol counseling details: Advised alcohol and medications don't mix. Substance/Drug Use: former Date of last use: marijuana - last used 06/2022. everything else- over 8 months. Desire information about substance/drug rehabilitation?: No Counseling given: No Adopted: No Marital status: Single Highest education level completed: High School Graduate Current occupational status: employed Physical Exam Const: COMMON NORMALS: patient oriented x3 HENMT: COMMON NORMALS: normocephalic HEAD & SCALP: normocephalic MOUTH: Normal oral and palatal mucosa present THROAT: posterior oropharynx normal and uvula midline Neck/C-Spine: COMMON NORMALS: supple GENERAL: Yes normal visual inspection Resp: COMMON NORMALS: normal respiratory effort, No retractions, No use of accessory muscles and clear to auscultation bilaterally AUSCULTATION: clear to auscultation bilaterally Cardio: COMMON NORMALS: regular rate, regular rhythm, S1 normal heart sound present, S2 normal heart sound present, No gallops present (Cardio), No clicks present (Cardio), No murmurs present (Cardio) and Peripheral pulses 2+ throughout RATE: regular rate RHYTHM: regular rhythm HEART SOUNDS: S1 normal heart sound present and S2 normal heart sound present PERIPHERAL PULSES: Peripheral pulses 2+ throughout GI: COMMON NORMALS: Normal to inspection, nondistended, normoactive bowel sounds present, Soft to palpation, non-tender and no masses PALPATION: Yes Soft to palpation : COMMON NORMALS: Yes no CVA tenderness BLADDER/KIDNEY EXAM: Yes no CVA tenderness Back/Pelvis: COMMON NORMALS: no CVA tenderness Extremity: COMMON NORMALS: normal to inspection Neuro: COMMON NORMALS: patient oriented x3 GAIT: Yes Normal gait present Skin: GENERAL SKIN EXAM: dry skin Course Vital Signs: Vital signs: Vital Signs Temperature 98.1 F 01/09/23 14:10 Pulse Rate 68 01/09/23 14:10 Respiratory Rate 18 01/09/23 14:10 Blood Pressure 84/57 01/09/23 14:10 Pulse Oximetry 98 01/09/23 14:10 Oxygen Delivery Me thod Room Air 01/09/23 14:10 MDM - Animal Bite Medical Decision Making Patient is a 22-year-old male who comes to the ED to get his third rabies shot. He has no other complaints and the bite on right hand is healing well. He was given rabies shot here and told to come back on January 16 to get this fourth and final rabies shot. Patient understood and agreed with plan. Discharge Plan Discharge Patient Disposition: Home Clinical Impression: Encounter for repeat administration of rabies vaccination Condition: Stable Prescriptions: No Action propranolol 20 mg tablet 20 mg PO BID PRN (Reason: anxiety) Qty: 60 2RF trazodone 50 mg tablet 100 mg PO .HS PRN (Reason: insomnia) Qty: 60 2RF escitalopram oxalate [Lexapro] 20 mg tablet 20 mg PO DAILY Qty: 90 0RF Discharge Orders: Discharge ED (Routine); Ordered 01/09/23 Ordered By: Bunny Jain Referrals: Geneva Ponce MD [Primary Care Provider] - Discharge Diet: Regular Discharge Activity: Increase activity as tolerated Activity Restrictions/Additional Instructions: Follow-up with medical provider as directed on January 16 to get your last rabies shot. Return to the ER or your medical provider if condition worsens. Please read and understand discharge instructions. Thank you for choosing [facility] for your healthcare needs today. Please realize this is an emergency room and that we are providing you with a medical screening exam and this may not be complete and all inclusive of all the testing and or work up that you may need to determine your ailment or severity of your illness. It is very important that you follow up as instructed or that you return to the Emergency Department should you have concerns or if your condition changes or worsens in any way. Coding Level of Care Code ED Shingler for Kaushal Rosa
[2023-01-09] MEDS: rabies vaccine 2.5 unit SDV IM (14:44)
== END 2023-01-09 14:52 | disposition home or self-care (01) ==
PROVIDERS: Emergency Provider Physician Assistant; PCP Family Medicine
DX: Z29.14 Encounter for prophylactic rabies immune globulin (principal); Z20.3 Contact with and (suspected) exposure to rabies; Z23 Encounter for immunization; F17.290 Nicotine dependence, other tobacco product, uncomplicated
CPT/HCPCS: 90471; 90675; 99281; 99283

== ENCOUNTER 2023-01-16 13:40 | Emergency (ER) | payer BC, MEDICAID, SELFPAY ==
[2023-01-16 13:58] VITALS: BP 98/59; PULSE 74; RESP 16; TEMP 36.8; O2SAT 97; BMI 19.9
[2023-01-16] MEDS: rabies vaccine 2.5 unit SDV IM (14:38)
--- NOTE | 2023-01-16 14:47 | W.ED.ANIMALB ---
HPI - Animal Bite General: Chief Complaint: Animal Bite Stated Complaint: last rabies shot Time Seen by Provider: 01/16/23 14:10 History of Present Illness: Patient is a 22 her male comes to the ED to get his fourth and final rabies shot. Patient was bitten by a opossum in right hand and received rabies vaccination series starting back on January 02. He says his animal bites on right hand is healing well and he denies any complications. Denies any reactions to previous rabies shots. Associated symptoms: Deny chills, fever(s) or headache(s) Review of Systems Const: Denies: fever(s), chills or fatigue Eyes: Denies: change in vision or eye discomfort ENMT: Denies: throat pain, odynophagia, nasal discharge or nasal congestion Card: Denies: chest pain, palpitations, edema, swelling of feet/ankles, dyspnea on exertion or orthopnea Resp: Denies: dyspnea, productive cough or non-productive cough GI: Denies: abdominal pain, nausea, vomiting, diarrhea, constipation or hematochezia : Denies: flank pain, difficulty urinating, dysuria or hematuria Musc: Denies: neck pain, back pain or extremity swelling Skin/Breast: Denies: rash or new lesions Neuro: Denies: headache(s), numbness in extremities or weakness in extremities PFSH ED PFSH: Medical History Psychiatric care Surgical History History of myringotomy Bi tube placement x2 Social History Smoking and tobacco status: current some day smoker e-cigarettes E-Cigarette Details: vaporizer device and with nicotine E-cig/vape details: Refill/ 2 weeks. Second hand smoke exposure: No Smoking risk assessment/counseling performed?: No Alcohol intake: current Alcohol intake frequency: holidays/special occasions only Alcohol type: hard liquor Desire information about alcohol rehabilitation?: No Counseling given: Yes Other alcohol counseling details: Advised alcohol and medications don't mix. Substance/Drug Use: former Date of last use: marijuana - last used 06/2022. everything else- over 8 months. Desire information about substance/drug rehabilitation?: No Counseling given: No Adopted: No Marital status: Single Highest education level completed: High School Graduate Current occupational status: employed Physical Exam Const: COMMON NORMALS: no acute distress, patient oriented x3, healthy appearing and alert HENMT: COMMON NORMALS: normocephalic HEAD & SCALP: normocephalic MOUTH: Normal oral and palatal mucosa present THROAT: posterior oropharynx normal and uvula midline Neck/C-Spine: COMMON NORMALS: supple GENERAL: Yes normal visual inspection Resp: COMMON NORMALS: normal respiratory effort, No retractions, No use of accessory muscles and clear to auscultation bilaterally AUSCULTATION: clear to auscultation bilaterally Cardio: COMMON NORMALS: regular rate, regular rhythm, S1 normal heart sound present, S2 normal heart sound present, No gallops present (Cardio), No clicks present (Cardio), No murmurs present (Cardio) and Peripheral pulses 2+ throughout RATE: regular rate RHYTHM: regular rhythm HEART SOUNDS: S1 normal heart sound present and S2 normal heart sound present PERIPHERAL PULSES: Peripheral pulses 2+ throughout GI: COMMON NORMALS: Normal to inspection, nondistended, normoactive bowel sounds present, Soft to palpation, non-tender and no masses PALPATION: Yes Soft to palpation : COMMON NORMALS: Yes no CVA tenderness BLADDER/KIDNEY EXAM: Yes no CVA tenderness Back/Pelvis: COMMON NORMALS: no CVA tenderness Extremity: COMMON NORMALS: normal to inspection Neuro: COMMON NORMALS: patient oriented x3 SENSORIUM/ORIENTATION: Yes alert GAIT: Yes Normal gait present Skin: GENERAL SKIN EXAM: dry skin Course Vital Signs: Vital signs: Vital Signs Temperature 98.2 F 01/16/23 13:58 Pulse Rate 74 01/16/23 13:58 Respiratory Rate 16 01/16/23 13:58 Blood Pressure 98/59 01/16/23 13:58 Pulse Oximetry 97 01/16/23 13:58 Oxygen Delivery Me thod Room Air 01/16/23 13:58 MDM - Animal Bite Medical Decision Making Patient is a 22 her male comes to the ED to get his fourth and final rabies shot. Patient was bitten by a opossum in right hand and received rabies vaccination series starting back on January 02. He says his animal bites on right hand is healing well and he denies any complications. Denies any reactions to previous rabies shots. Vitals are stable. Exam of patient is benign he appears no acute distress or pain. Rabies vaccine administered by nurse and patient was stable for discharge home. He was diagnosed with encounter for repeat administration of fourth and final rabies shot and told to follow-up with his PCP within the next week for reevaluation. Patient understood and agreed with plan. Discharge Plan Discharge Patient Disposition: Home Clinical Impression: Encounter for repeat administration of rabies vaccination Condition: Stable Prescriptions: No Action propranolol 20 mg tablet 20 mg PO BID PRN (Reason: anxiety) Qty: 60 2RF trazodone 50 mg tablet 100 mg PO .HS PRN (Reason: insomnia) Qty: 60 2RF escitalopram oxalate [Lexapro] 20 mg tablet 20 mg PO DAILY Qty: 90 0RF Discharge Orders: Discharge ED (Routine); Ordered 01/16/23 Ordered By: Bunny Jain Referrals: Geneva Ponce MD [Primary Care Provider] - Discharge Diet: Regular Discharge Activity: Increase activity as tolerated Activity Restrictions/Additional Instructions: Follow-up with medical provider as directed in the next 5 to 7 days for reevaluation. Return to the ER or your medical provider if condition worsens. Please read and understand discharge instructions. Thank you for choosing [facility] for your healthcare needs today. Please realize this is an emergency room and that we are providing you with a medical screening exam and this may not be complete and all inclusive of all the testing and or work up that you may need to determine your ailment or severity of your illness. It is very important that you follow up as instructed or that you return to the Emergency Department should you have concerns or if your condition changes or worsens in any way. Coding Level of Care Code ED [place] Roofer for Kaushal Rosa
== END 2023-01-16 15:00 | disposition home or self-care (01) ==
PROVIDERS: Emergency Provider Physician Assistant; PCP Family Medicine
DX: Z23 Encounter for immunization (principal); S61.451A Open bite of right hand, initial encounter; W55.81XA Bitten by other mammals, initial encounter
CPT/HCPCS: 90471; 90675; 99281

== ENCOUNTER 2023-07-12 22:20 | Emergency (ER) | payer BC, MEDICAID, SELFPAY ==
[2023-07-12 22:23] VITALS: BP 109/75; PULSE 49; RESP 16; TEMP 36.4; O2SAT 100; BMI 19.9
--- NOTE | 2023-07-12 22:31 | W.ED.URI ---
HPI - URI/Sore Throat General: Chief Complaint: Headache Stated Complaint: headache, sore throat, bilateral ear pain Time Seen by Provider: 07/12/23 22:29 History of Present Illness: 23-year-old male patient has been ill for about 7 days. Over the last 24 hours he has developed a headache and bilateral ear pain. Patient appears nontoxic. Patient appears mildly unwell. Patient reports chills and fever intermittently. Associated symptoms: Reports ear or mastoid pain; Deny chest pain, nausea or vomiting Review of Systems General: Reports: 10 or more systems reviewed and unremarkable except in HPI and below ENMT: Reports: throat pain and ear or mastoid pain Card: Denies: chest pain Resp: Denies: dyspnea GI: Denies: nausea or vomiting : Denies: difficulty urinating Musc: Denies: neck pain or back pain Skin/Breast: Denies: rash PFSH ED PFSH: Medical History Psychiatric care Surgical History History of myringotomy Bi tube placement x2 Social History Smoking and tobacco/nicotine status: current some day tobacco/nicotine user e-cigarettes E-Cigarette Details: vaporizer device and with nicotine E-cig/vape details: Refill/ 2 weeks. Second hand smoke exposure: No Alcohol intake: current Alcohol intake frequency: holidays/special occasions only Alcohol type: hard liquor Substance/Drug Use: former Date of last use: marijuana - last used 06/2022. everything else- over 8 months. Adopted: No Marital status: Single Highest education level completed: High School Graduate Current occupational status: employed Physical Exam Const: COMMON NORMALS: alert HENMT: COMMON NORMALS: normocephalic HEAD & SCALP: normocephalic NOSE: Abnormal mucous membranes and turbinates present erythematous TYMPANIC MEMBRANE: TM abnormal TM laterality: bilateral bulging and dull THROAT: posterior oropharynx normal Neck/C-Spine: COMMON NORMALS: full ROM and no meningeal signs Resp: COMMON NORMALS: normal respiratory effort and clear to auscultation bilaterally AUSCULTATION: clear to auscultation bilaterally Cardio: COMMON NORMALS: regular rhythm RATE: bradycardic RHYTHM: regular rhythm GI: COMMON NORMALS: non-tender Back/Pelvis: COMMON NORMALS: thoracic and lumbar spine normal to inspection Neuro: SENSORIUM/ORIENTATION: Yes alert MENINGEAL SIGNS: Yes no meningeal signs Skin: COMMON NORMALS: turgor normal GENERAL SKIN EXAM: turgor normal Course Vital Signs: Vital signs: Vital Signs Temperature 97.5 F L 07/12/23 22:23 Pulse Rate 50 L 07/12/23 23:01 Respiratory Rate 16 07/12/23 23:01 Blood Pressure 109/75 07/12/23 22:23 Pulse Oximetry 100 07/12/23 23:01 Oxygen Delivery Me thod Room Air 07/12/23 22:23 MDM - URI/Sore Throat Medical Decision Making 23-year-old male patient comes in with illness x1 week. Patient reports headache along with ear pain and sore throat starting today. Posterior oropharynx is slightly erythematous. Bilateral TMs are dull and bulging. Lungs are clear to auscultation. Vital signs are normal except for some mild bradycardia. Differential diagnosis includes upper respiratory infections, otitis media, strep pharyngitis, rhinosinusitis. Patient's illness has been longer than 7 days believe is probably have a secondary bacterial sinusitis. Patient be started on doxycycline 100 mg twice daily for 7 days and given ibuprofen for his headache. Patient reported understanding of care plan and need for follow-up or return to the ER. Patient was stable and discharged home. No radiology studies performed this visit Discharge Plan Discharge Patient Disposition: Home Clinical Impression: Acute bacterial rhinosinusitis Condition: Stable Prescriptions: New doxycycline hyclate 100 mg tablet 100 mg PO BID 7 Days Qty: 14 0RF ibuprofen 600 mg tablet 600 mg PO Q6H PRN (Reason: fever or pain) Qty: 40 0RF No Action levofloxacin 750 mg tablet 750 mg PO DAILY 10 Days Qty: 10 0RF fexofenadine-pseudoephedrine [Antonella-D 12 Hour] 60-120 mg tablet extended release 12 hr 1 tab PO Q12H PRN (Reason: allergy symptoms) Qty: 20 0RF escitalopram oxalate [Lexapro] 20 mg tablet 20 mg PO DAILY Qty: 30 0RF trazodone 50 mg tablet 100 mg PO .HS PRN (Reason: insomnia) Qty: 60 0RF Discharge Orders: Discharge ED (Routine); Ordered 07/12/23 Ordered By: Reid Butcher Referrals: Geneva Ponce MD [Primary Care Provider] - Discharge Diet: Usual diet Discharge Activity: Increase activity as tolerated Patient Instructions: Sinusitis (ED) Activity Restrictions/Additional Instructions: Home and rest. Drink plenty of water and fluids. Use acetaminophen and ibuprofen as needed for pain. Use [id number] decongestant to help with sinus congestion. Take antibiotics as directed. Follow-up with primary care for further instructions. Return to ED for new concerns. Coding Level of Care Code ED Melter Supervisor [employer] for Kaushal Rosa
[2023-07-12] MEDS: doxycycline 100 mg Tablet PO (22:52)
[2023-07-12] MEDS: ibuprofen 600 mg Tablet PO (22:52)
[2023-07-12 23:01] VITALS: PULSE 50; RESP 16; O2SAT 100
== END 2023-07-12 22:48 | disposition home or self-care (01) ==
PROVIDERS: Emergency Provider Nurse Practitioner Family; PCP Family Medicine
DX: J01.80 Other acute sinusitis (principal); B96.89 Other specified bacterial agents as the cause of diseases classified elsewhere; F17.290 Nicotine dependence, other tobacco product, uncomplicated
CPT/HCPCS: 99283

== ENCOUNTER 2023-07-21 23:38 | Emergency (ER) | payer BC, MEDICAID, SELFPAY ==
[2023-07-21 23:40] VITALS: BP 127/66; PULSE 91; RESP 18; TEMP 37.4; O2SAT 96; BMI 19.9
--- NOTE | 2023-07-22 00:05 | W.ED.COVID ---
HPI - COVID General: Chief Complaint: COVID symptoms Stated Complaint: headache, sore throat, body aches, fever Time Seen by Provider: 07/21/23 23:42 Source: patient Mode of arrival: ambulatory Limitations: no limitations History of Present Illness: Patient presents emergency department, nasal congestion cough, and body aches. Patient was seen and evaluated here in the emergency department about 2 weeks ago for similar symptoms. At that point he had been complaining of symptoms for 1 week. Patient was eventually treated for suspicion of secondary sinusitis due to upper respiratory viral illness. Patient was treated with doxycycline. Patient states he took the medication completely and completed it a couple of days ago. He has not noticed improvement of his symptoms. He states that about 4 5 days ago he was exposed to COVID. Patient states he has been taking throat lozenges and ibuprofen for his symptoms. COVID Results: SARS-CoV-2 Antigen (Rapid) negative (Negative) 07/22/23 00:18 Review of Systems General: Reports: 10 or more systems reviewed and unremarkable except in HPI and below PFSH ED PFSH: Medical History Psychiatric care Surgical History History of myringotomy Bi tube placement x2 Social History Smoking and tobacco/nicotine status: current some day tobacco/nicotine user e-cigarettes E-Cigarette Details: vaporizer device and with nicotine E-cig/vape details: Refill/ 2 weeks. Second hand smoke exposure: No Alcohol intake: current Alcohol intake frequency: holidays/special occasions only Alcohol type: hard liquor Substance/Drug Use: former Date of last use: marijuana - last used 06/2022. everything else- over 8 months. Adopted: No Marital status: Single Highest education level completed: High School Graduate Current occupational status: employed Physical Exam Const: COMMON NORMALS: no acute distress, patient oriented x3 and alert HENMT: OTHER: Mucous membranes are moist. Pharynx is mildly erythematous without obvious signs of exudate. Uvula is midline. Eye: COMMON NORMALS: Equal, round and reactive pupils present, EOMs intact bilaterally and conjunctivae normal CONJUNCTIVA: Yes conjunctivae normal PUPIL: Yes Equal, round and reactive pupils present Neck/C-Spine: COMMON NORMALS: no JVD Lymph: LYMPHATIC: no lymphadenopathy noted Resp: COMMON NORMALS: normal respiratory effort, No retractions and No use of accessory muscles Cardio: COMMON NORMALS: no JVD and regular rate RATE: regular rate : COMMON NORMALS: Yes no CVA tenderness BLADDER/KIDNEY EXAM: Yes no CVA tenderness Back/Pelvis: COMMON NORMALS: no CVA tenderness, thoracic and lumbar spine normal to inspection and thoraco-lumbar ROM normal Extremity: COMMON NORMALS: normal to inspection, full ROM and no pedal edema Neuro: COMMON NORMALS: patient oriented x3 SENSORIUM/ORIENTATION: Yes alert Skin: COMMON NORMALS: no rashes or lesions noted and turgor normal GENERAL SKIN EXAM: no rashes or lesions noted and turgor normal Course Vital Signs: Vital signs: Vital Signs Temperature 99.3 F 07/21/23 23:40 Pulse Rate 91 07/21/23 23:40 Respiratory Rate 18 07/21/23 23:40 Blood Pressure 127/66 07/21/23 23:40 Pulse Oximetry 96 07/22/23 00:16 Oxygen Delivery Me thod Room Air 07/22/23 00:16 MDM - COVID Medical Decision Making COVID test is negative. Patient still is most likely dealing with a viral illness given that he has recently been on a full course of doxycycline. Explained to this patient that this gives significant respiratory- Upper and lower respiratory, coverage. For that reason, if he is still experiencing symptoms I do believe it is most likely viral. Explained that there are several different viruses in the community at this time and they can superimpose each other as 1 begins to improve, you may begin to come down with illness from another one. He needs to continue to stay hydrated, treat fevers and aches/pains with Tylenol and ibuprofen, and use symptomatic treatment such as throat lozenges and sprays for his sore throat. Patient is given a note for his employer. He is to continue closely monitoring and seek reevaluation as needed. Differential Diagnosis Likely other viral infection; Unlikely COVID 19, bacterial infection, pneumonia or copd exacerbation Lab Data Laboratory Results SARS-CoV-2 Ag (Rapid) negative (Negative) 07/22/23 00:18 SARS-CoV-2 Antigen (Rapid) negative (Negative) 07/22/23 00:18 No radiology studies performed this visit Discharge Plan Discharge Patient Disposition: Home Clinical Impression: URI (upper respiratory infection), Exposure to severe acute respiratory syndrome coronavirus 2 (SARS-CoV-2), Pharyngitis Condition: Stable Prescriptions: New prednisone 20 mg tablet 20 mg PO BID 5 Days Qty: 10 0RF No Action trazodone 50 mg tablet 100 mg PO .HS PRN (Reason: insomnia) Qty: 60 2RF escitalopram oxalate [Lexapro] 20 mg tablet 20 mg PO DAILY Qty: 30 2RF levofloxacin 750 mg tablet 750 mg PO DAILY 10 Days Qty: 10 0RF fexofenadine-pseudoephedrine [Antonella-D 12 Hour] 60-120 mg tablet extended release 12 hr 1 tab PO Q12H PRN (Reason: allergy symptoms) Qty: 20 0RF ibuprofen 600 mg tablet 600 mg PO Q6H PRN (Reason: fever or pain) Qty: 40 0RF Discharge Orders: Discharge ED (Routine); Ordered 07/22/23 Ordered By: Billie Campbell Referrals: Geneva Ponce MD [Primary Care Provider] - Discharge Diet: Advance as tolerated Discharge Activity: Increase activity as tolerated Patient Instructions: Opioid Safety, Pain Management Activity Restrictions/Additional Instructions: COVID test is negative today. Given that you have just finished a long course of antibiotics which give us coverage for sinus infections, pneumonias, staph and strep infections, and MRSA, I believe if you are still feeling ill at this time it is due to a different viral illness. We are treating you symptomatically with steroids which can help with generalized inflammation, pain, and especially irritation of the throat. We still encourage you to use Tylenol and ibuprofen as well as [id number] throat sprays and lozenges as you have been. It is very important that you stay well-hydrated during this time. Viral illnesses are still contagious and we do recommend covering coughs and sneezes and performing regular, good hand hygiene. Stand Alone Forms: Work/School Release Coding Level of Care Code ED Durability Technician for Kaushal Rosa
[2023-07-22 00:16] VITALS: O2SAT 96
[2023-07-22 00:46] LABS: SARS Covid-2 Antigen negative (Negative)
[2023-07-22] MEDS: dexamethasone 10 mg/mL INJ IM (01:21)
[2023-07-22 01:43] VITALS: BP 127/66; PULSE 67; O2SAT 98
== END 2023-07-22 01:44 | disposition home or self-care (01) ==
PROVIDERS: Emergency Provider Physician Assistant; PCP Family Medicine
DX: J02.9 Acute pharyngitis, unspecified (principal); Z11.52 Encounter for screening for COVID-19; F17.290 Nicotine dependence, other tobacco product, uncomplicated
CPT/HCPCS: 87426; 96372; 99284; J1100

== ENCOUNTER → 2023-10-03 15:51 | Outpatient (BNVA) | payer BC, MEDICAID, SELFPAY | PROVIDERS: PCP Family Medicine; Visit Provider Nurse Practitioner Family | DX: Z20.2 Contact with and (suspected) exposure to infections with a predominantly sexual mode of transmission (principal) | CPT/HCPCS: 87491; 87591 ==

== ENCOUNTER 2023-12-22 08:59 | Emergency (ER) | payer BC, MEDICAID, SELFPAY ==
--- NOTE | 2023-12-22 09:03 | W.ED.GENADLT ---
HPI - General Adult General: Chief complaint: Upper Respiratory Infection Stated complaint: Sore throat , Ear pain, SOB Time Seen by Provider: 12/22/23 09:01 Source: patient Mode of arrival: ambulatory History of Present Illness: 23 yo male presents emergency room complaining of sinus congestion cough sore throat some shortness of breath. Cough is not productive. No hemoptysis. Child in the home who has tested positive for rhinovirus. Onset (ago): day(s) Severity: moderate Relieving factors: none Exacerbating factors: none Associated symptoms: Deny chest pain, confusion, cough, diaphoresis, decreased appetite, dyspnea, fevers/chills, headache(s), malaise, nausea, rash, palpitations, seizures, short of breath, syncope, vomiting or weakness Treatments prior to arrival: none Review of Systems Const: Denies: fever(s), chills, malaise or diaphoresis Card: Denies: chest pain, palpitations or syncope Resp: Denies: dyspnea GI: Denies: abdominal pain, nausea or vomiting : Denies: dysuria, urinary frequency or urinary urgency Musc: Denies: neck pain or back pain Skin/Breast: Denies: rash Neuro: Denies: headache(s) or confusion PFSH ED PFSH: Medical History Cannabis use disorder, severe, dependence Psychiatric care Surgical History History of myringotomy Bi tube placement x2 Social History Smoking and tobacco/nicotine status: current some day tobacco/nicotine user e-cigarettes E-Cigarette Details: vaporizer device and with nicotine E-cig/vape details: Refill/ 2 weeks. Second hand smoke exposure: No Alcohol intake: current Alcohol intake frequency: holidays/special occasions only Alcohol type: hard liquor Substance/Drug Use: former Date of last use: marijuana - last used 06/2022. everything else- over 8 months. Adopted: No Marital status: Single Highest education level completed: High School Graduate Current occupational status: employed Physical Exam Const: COMMON NORMALS: no acute distress GENERAL APPEARANCE: cooperative and comfortable ORIENTATION/CONSCIOUSNESS: Yes awake, Yes oriented to person, Yes oriented to place and Yes oriented to time HENMT: COMMON NORMALS: normocephalic, atraumatic and hearing grossly normal bilaterally HEAD & SCALP: normocephalic and atraumatic Resp: COMMON NORMALS: normal respiratory effort, No retractions, No use of accessory muscles and clear to auscultation bilaterally AUSCULTATION: clear to auscultation bilaterally Cardio: COMMON NORMALS: regular rate, regular rhythm and No murmurs present (Cardio) RATE: regular rate RHYTHM: regular rhythm GI: COMMON NORMALS: Soft to palpation and No hepatosplenomegaly present AUSCULTATION: Yes normoactive bowel sounds PALPATION: Yes Soft to palpation, No Tenderness to palpation present (GI), No Guarding due to palpation present (GI) and Yes No hepatosplenomegaly present Extremity: COMMON NORMALS: normal to inspection, capillary refill normal, no clubbing, cyanosis or edema, no calf tenderness and no pedal edema Neuro: SENSORIUM/ORIENTATION: Yes oriented to person, Yes oriented to place and Yes oriented to time Skin: COMMON NORMALS: no rashes or lesions noted GENERAL SKIN EXAM: no rashes or lesions noted Course Vital Signs: Vital signs: Vital Signs Temperature 97.8 F 12/22/23 09:12 Pulse Rate 54 L 12/22/23 09:12 Blood Pressure 110/54 12/22/23 09:12 Pulse Oximetry 99 12/22/23 09:12 Oxygen Delivery Me thod Room Air 12/22/23 09:12 [facility] - General Adult Medical Decision Making Exam unremarkable. Symptoms suggestive of viral infection given known exposure to patient that is tested with rhinovirus. Supportive cares can use pseudoephedrine as needed follow-up as needed Medical Records I reviewed the patient's medical records. Lab Data I reviewed the patient's lab results. No radiology studies performed this visit Discharge Plan Discharge Patient Disposition: Home Clinical Impression: Viral infection Condition: Stable Prescriptions: New pseudoephedrine HCl 120 mg tablet extended release 120 mg PO BID PRN (Reason: nasal congestion) Qty: 10 0RF No Action escitalopram oxalate [Lexapro] 20 mg tablet 20 mg PO DAILY Qty: 90 1RF trazodone 50 mg tablet 50 mg PO .HS PRN (Reason: insomnia) Qty: 90 1RF prednisone 20 mg tablet 20 mg PO DAILY 5 Days Qty: 5 0RF levofloxacin 750 mg tablet 750 mg PO DAILY 5 Days Qty: 5 0RF ibuprofen 600 mg tablet 600 mg PO Q6H PRN (Reason: fever or pain) Qty: 40 0RF Discharge Orders: Discharge ED (Routine); Ordered 12/22/23 Ordered By: Jeyson Mckee Referrals: Geneva Ponce MD [Primary Care Provider] - Discharge Diet: Usual diet Discharge Activity: Increase activity as tolerated Patient Instructions: Viral Syndrome (ED), Opioid Safety, Pain Management Activity Restrictions/Additional Instructions: Thank you for choosing [facility] for your healthcare needs today. Please realize this is an emergency room and that we are providing you with a medical screening exam and this may not be complete and all inclusive of all the testing and or work up that you may need to determine your ailment or severity of your illness. It is very important that you follow up as instructed or that you return to the Emergency Department should you have concerns or if your condition changes or worsens in any way. Coding Level of Care Code ED Passport Application Examiner for Kaushal Rosa
[2023-12-22 09:12] VITALS: BP 110/54; PULSE 54; TEMP 36.6; O2SAT 99; BMI 19.9
== END 2023-12-22 09:56 | disposition home or self-care (01) ==
PROVIDERS: Emergency Provider Family Medicine; PCP Family Medicine
DX: B34.9 Viral infection, unspecified (principal); F17.290 Nicotine dependence, other tobacco product, uncomplicated
CPT/HCPCS: 99283

== ENCOUNTER 2024-04-17 11:23 | Emergency (ER) | payer BC, MEDICAID, SELFPAY ==
[2024-04-17 12:19] VITALS: BP 105/64; PULSE 71; RESP 16; TEMP 36.5; O2SAT 97; BMI 20.7
--- NOTE | 2024-04-17 12:48 | ED_ITS ---
HPI - Skin/Abscess/Foreign Bdy General: Chief complaint: Skin/Abscess/Foreign Body Stated complaint: rash Time Seen by Provider: 04/17/24 11:24 Source: patient Mode of arrival: ambulatory Limitations: no limitations History of Present Illness: Patient is a 23-year-old male presents to ED today for evaluation of a rash to his hands over the past 3 days or so. He states rash is extremely pruritic. He feels like itching helps by running his hands under warm water. He admitting only has been excoriating the lesions. He feels like lesion started as small pustules but are now scabbed from him picking. He does present with his [id number] daughter who has a rash but states her rash does not appear anything like his and she does not seem bothered by it nor is itching at it. Denies any exposures to patients with similar rashes or known scabies. He has no other lesions elsewhere. No systemic symptoms. MD complaint: rash Onset (ago): day(s) Tetanus up to date: yes Location: L hand and R hand Severity: mild Quality: pruritic Relieving factors: other (warm water) Exacerbating factors: none Context: none Associated symptoms: Reports no associated symptoms; Deny chills, fever(s) or vomiting Treatments prior to arrival: none Related Data Previous Rx's Medication Instructions Recorded ibuprofen 600 mg tablet 600 mg PO Q6H PRN fever or pain 07/12/23 #40 tabs escitalopram oxalate 20 mg tablet 20 mg PO DAILY #90 tabs 10/16/23 (Lexapro) trazodone 50 mg tablet 50 mg PO .HS PRN insomnia #90 tabs 10/16/23 pseudoephedrine HCl 120 mg 120 mg PO BID PRN nasal congestion 12/22/23 tablet,extended release #10 tabs doxycycline hyclate 100 mg capsule 100 mg PO BID 10 days #20 caps 01/31/24 fluticasone propionate 50 2 spray intranasal DAILY #16 grams 01/31/24 mcg/actuation nasal spray,suspension (Flonase Allergy Relief) Allergies Allergy/AdvReac Type Severity Reaction Status Date / Time azithromycin [From Zithromax] Allergy Intermediate ALGY-Rash Verified 04/17/24 12:23 cefuroxime Allergy Intermediate ALGY-Rash Verified 04/17/24 12:23 Penicillins Allergy Intermediate ALGY-Rash Verified 04/17/24 12:23 Review of Systems Const: Denies: fever(s), chills, body aches, fatigue or malaise ENMT: Denies: throat pain, odynophagia, nasal discharge, nasal congestion or sinus pain GI: Denies: vomiting or diarrhea Musc: Denies: neck pain, back pain, extremity pain, extremity swelling or joint pain Skin/Breast: Reports: rash and pruritus Neuro: Denies: numbness in extremities or sensory changes PFSH ED PFSH: Medical History Cannabis use disorder, severe, dependence Psychiatric care Surgical History History of myringotomy Bi tube placement x2 Social History Smoking and tobacco/nicotine status: current some day tobacco/nicotine user e- cigarettes E-Cigarette Details: vaporizer device and with nicotine E-cig/vape details: Refill/ 2 weeks. Second hand smoke exposure: No Alcohol intake: current Alcohol intake frequency: holidays/special occasions only Alcohol type: hard liquor Substance/Drug Use: former Date of last use: marijuana - last used 06/2022. everything else- over 8 months. Adopted: No Marital status: Single Highest education level completed: High School Graduate Current occupational status: employed Physical Exam Const: COMMON NORMALS: no acute distress, average body habitus, no limitations, healthy appearing, alert and well nourished Extremity: GENERAL: Yes normal exam except as noted RIGHT UPPER EXTREMITY: Yes hand & digits LEFT UPPER EXTREMITY: Yes hand & digits OTHER: see skin assessment below Neuro: COMMON NORMALS: moves all extremities, no focal motor deficits and no sensory deficits noted SENSORIUM/ORIENTATION: Yes alert Skin: RASHES: rashes noted OTHER: pt has several small excoriated/picked papular lesions to bilateral hands/lateral aspects of fingers/less to webbing spaces and a few to volar wrist; no obvious linear formations/burrowing; no other lesions noted elsewhere Course Vital Signs: Vital signs: Vital Signs Temperature 97.7 F 04/17/24 12:19 Pulse Rate 71 04/17/24 12:19 Respiratory Rate 16 04/17/24 12:19 Blood Pressure 105/64 04/17/24 12:19 Pulse Oximetry 97 04/17/24 12:19 Oxygen Delivery Me thod Room Air 04/17/24 12:19 MDM - Skin/Abscess/Foreign Bdy Medicial Decision Making Some concern for scabies although other etiologies possible such as dyshidrotic eczema, allergic contact dermatitis, atopic dermatitis, etc. He states he would like to hold off on scabies treatment and is at least agreeable to hydrocortisone cream BID and emollients to see if this helps. If no improvement or worsening rash he states he will follow up with PCP. No radiology studies performed this visit Discharge Plan Discharge Patient Disposition: Home Clinical Impression: Rash of both hands Condition: Stable Prescriptions: No Action escitalopram oxalate [Lexapro] 20 mg tablet 20 mg PO DAILY Qty: 90 1RF trazodone 50 mg tablet 50 mg PO .HS PRN (Reason: insomnia) Qty: 90 1RF doxycycline hyclate 100 mg capsule 100 mg PO BID 10 Days Qty: 20 0RF fluticasone propionate [Flonase Allergy Relief] 50 mcg/actuation spray,suspension 2 spray intranasal DAILY Qty: 16 0RF Rx Instructions: administer into each nostril ibuprofen 600 mg tablet 600 mg PO Q6H PRN (Reason: fever or pain) Qty: 40 0RF pseudoephedrine HCl 120 mg tablet extended release 120 mg PO BID PRN (Reason: nasal congestion) Qty: 10 0RF Discharge Orders: Discharge ED (Routine); Ordered 04/17/24 Ordered By: Angeline Jung Referrals: Geneva Ponce MD [Primary Care Provider] - Activity Restrictions/Additional Instructions: As we discussed I would like you to start applying hydrocortisone cream twice daily to help with the itching. You may also use thick emollients as a moisturizer. We did discuss the possibility of scabies but you would like to hold off on treatment at this time. If lesions continue to worsen or spread I would like you to follow-up with primary care for repeat evaluation. Coding Level of Care Code ED Print Production Associate for Kaushal Rosa
== END 2024-04-17 13:08 | disposition home or self-care (01) ==
PROVIDERS: Emergency Provider Physician Assistant; PCP Family Medicine
DX: R21 Rash and other nonspecific skin eruption (principal)
CPT/HCPCS: 99282

== ENCOUNTER 2024-09-18 13:18 | Emergency (ER) | payer BC, MEDICAID, SELFPAY ==
[2024-09-18 13:27] VITALS: BP 123/89; PULSE 85; RESP 17; TEMP 36.8; O2SAT 97; BMI 20.7
[2024-09-18 16:54] LABS: Bilirubin Urine Negative (Negative); Blood Urine Negative (Negative); Glucose Urine UA Negative (Normal); Ketones Urine Negative (Negative); Leukocyte Esterase Urine 1+ (Negative); Nitrate Urine Negative (Negative); Protein Urine Negative (Negative); Specific Gravity, Urine 1.022 (1.005-1.030); Urine Appearance Clear (CLEAR); Urine Color Yellow (Yellow); Urobilinogen Urine 0.2 mg/dL (Negative); pH Urine 5.5 (5-7)
[2024-09-18 16:59] LABS: Bacteria Urine None Seen /hpf; Hyaline Casts Urine 1.21 /lpf; RBC Urine 0-2 /hpf (0-2); Squamous Epithelial Cell Urine 0-5 /hpf (0-5); WBC Urine 51-100 /hpf (0-5)
[2024-09-18 17:03] LABS: Add Urine Culture? Yes
--- NOTE | 2024-09-18 17:31 | W.ED.MALEGU ---
HPI - Male Genitourinary General: Chief complaint: Urogenital-Male Stated complaint: urinary issue Time Seen by Provider: 09/18/24 17:03 Source: patient Mode of arrival: ambulatory Limitations: no limitations History of Present Illness: Patient is a 24-year-old male presenting to the emergency department complaining of dysuria for the past week. He is also reporting bilateral lower abdominal quadrant pain that wraps around the flanks, reports history of kidney stones and that this feels similar. Denies any new partners, states that his girlfriend did not have any similar symptoms and he has no personal history of STDs. He is not running fevers, no nausea/vomiting/diarrhea, no back pain, no testicular pain, no penile discharge, no other symptoms. Pain reported be mild, he states it is worse with walking. He does note that the right side seems to be worse than the left, still has his appendix. MD Complaint: dysuria Onset (ago): week(s) (1) Duration: constant Location: right inguinal region and left inguinal region Radiation: right flank and left flank Exacerbating factors: movement (Walking) Associated symptoms: Reports dysuria; Deny hematuria, nausea or vomiting Related Data Previous Rx's Medication Instructions Recorded ibuprofen 600 mg tablet 600 mg PO Q6H PRN fever or pain 07/12/23 #40 tabs escitalopram oxalate 20 mg tablet 20 mg PO DAILY #90 tabs 10/16/23 (Lexapro) trazodone 50 mg tablet 50 mg PO .HS PRN insomnia #90 tabs 10/16/23 cetirizine 10 mg tablet (Zyrtec) 10 mg PO DAILY PRN allergy 04/21/24 symptoms #90 tabs fluticasone propionate 50 2 spray intranasal DAILY #16 grams 04/21/24 mcg/actuation nasal spray,suspension (Flonase Allergy Relief) doxycycline hyclate 100 mg capsule 100 mg PO BID 10 days #20 caps 06/29/24 doxycycline hyclate 100 mg tablet 100 mg PO BID 10 days #20 tabs 09/18/24 Allergies Allergy/AdvReac Type Severity Reaction Status Date / Time azithromycin [From Zithromax] Allergy Intermediate ALGY-Rash Verified 06/29/24 14:30 cefuroxime Allergy Intermediate ALGY-Rash Verified 06/29/24 14:30 Penicillins Allergy Intermediate ALGY-Rash Verified 06/29/24 14:30 Review of Systems General: Reports: 10 or more systems reviewed and unremarkable except in HPI and below Const: Denies: fever(s), chills, change in appetite, change in weight or diaphoresis ENMT: Denies: throat pain or hoarseness Card: Denies: chest pain, palpitations or lightheadedness Resp: Denies: dyspnea, productive cough or wheezing GI: Reports: abdominal pain; Denies: nausea, vomiting, diarrhea, constipation, bloating, change in stool character or hematochezia : Reports: flank pain and dysuria; Denies: difficulty urinating, urinary frequency, urinary urgency, hematuria, penile discharge or testicular pain Musc: Denies: neck pain or back pain Skin/Breast: Denies: rash or new lesions Neuro: Denies: headache(s) or dizziness PFSH ED PFSH: Medical History Cannabis use disorder, severe, dependence Psychiatric care Surgical History History of myringotomy Bi tube placement x2 Social History Smoking and tobacco/nicotine status: never used tobacco/nicotine Second hand smoke exposure: No Alcohol intake: current Alcohol intake frequency: holidays/special occasions only Alcohol type: hard liquor Substance/Drug Use: former Date of last use: marijuana - last used 06/2022. everything else- over 8 months. Adopted: No Marital status: Single Highest education level completed: High School Graduate Current occupational status: employed Physical Exam Const: COMMON NORMALS: no acute distress, average body habitus, patient oriented x3, no limitations, healthy appearing, alert and well nourished GENERAL APPEARANCE: cooperative and comfortable ORIENTATION/CONSCIOUSNESS: Yes awake Eye: COMMON NORMALS: Equal, round and reactive pupils present, EOMs intact bilaterally, conjunctivae normal and normal visual palacios by confrontation CONJUNCTIVA: Yes conjunctivae normal PUPIL: Yes Equal, round and reactive pupils present Neck/C-Spine: COMMON NORMALS: full ROM, supple, no meningeal signs and no JVD Resp: COMMON NORMALS: normal respiratory effort, No retractions, No use of accessory muscles and clear to auscultation bilaterally AUSCULTATION: clear to auscultation bilaterally, no crackles, no rales, no rhonchi and no wheezes Cardio: COMMON NORMALS: no JVD, regular rate, regular rhythm, S1 normal heart sound present, S2 normal heart sound present, No gallops present (Cardio), No clicks present (Cardio), No murmurs present (Cardio), No rub (Cardio) and Peripheral pulses 2+ throughout RATE: regular rate RHYTHM: regular rhythm HEART SOUNDS: S1 normal heart sound present and S2 normal heart sound present PERIPHERAL PULSES: Peripheral pulses 2+ throughout GI: COMMON NORMALS: Normal to inspection, nondistended, normoactive bowel sounds present, Soft to palpation, No hepatosplenomegaly present and no masses AUSCULTATION: Yes normoactive bowel sounds PALPATION: Yes Soft to palpation, No Guarding due to palpation present (GI), No Rigid due to palpation and Yes No hepatosplenomegaly present RECTAL EXAM: Yes deferred OTHER: Bilateral lower quadrant abdominal tenderness to palpation : COMMON NORMALS: Yes no CVA tenderness BLADDER/KIDNEY EXAM: Yes no CVA tenderness Back/Pelvis: COMMON NORMALS: no CVA tenderness Extremity: COMMON NORMALS: normal to inspection and full ROM Neuro: COMMON NORMALS: patient oriented x3, moves all extremities, no focal motor deficits and no sensory deficits noted SENSORIUM/ORIENTATION: Yes alert MENINGEAL SIGNS: Yes no meningeal signs Psych: COMMON NORMALS: mental status grossly normal, cooperative and speech normal SPEECH: Yes normal speech Skin: COMMON NORMALS: no rashes or lesions noted GENERAL SKIN EXAM: no rashes or lesions noted Course Vital Signs: Vital signs: Vital Signs Temperature 98.3 F 09/18/24 13:27 Pulse Rate 85 09/18/24 13:27 Respiratory Rate 17 09/18/24 13:27 Blood Pressure 123/89 09/18/24 13:27 Pulse Oximetry 97 09/18/24 13:27 Oxygen Delivery Me thod Room Air 09/18/24 13:27 MDM - Male Medical Decision Making Patient presenting with dysuria and some lower abdominal pain. Tenderness to palpation of the lower abdomen on exam. Did not report to me any concerning sexual history, has the same partner and no personal history of STD. Urine showed leukocytes and white blood cells. Basic blood work was unremarkable and I do not have suspicion of an acute appendicitis or other abdominal process at this time. In addition there was no blood on his urinalysis to signify any potential ureterolithiasis. Patient has been comfortable throughout ED stay, vitals have been normal. Will treat with shot of ceftriaxone and doxycycline at home, instructed him to return with any obvious blood in his urine, high fever, worsening lower abdominal pain, specifically the right lower quadrant, or other concerning findings he has. He agrees with this plan for discharge. Lab Data 09/18/24:09/18/24 Laboratory Results WBC 5.52 10^3/uL (3.29-11.43) 09/18/24 RBC 5.08 10^6/uL (3.85-5.65) 09/18/24 Hgb 15.00 g/dL (11.27-16.99) 09/18/24 Hct 44.2 % (37-53) 09/18/24 MCV 87.0 fl (82-101) 09/18/24: MCH 29.5 pg (27-33) 09/18/24: MCHC 33.9 g/dL (30-55) 09/18/24 RDW 11.8 % (12.1-15.1) L 09/18/24 Plt Count 216 10^3/cmm (157-399) 09/18/24 MPV 9.8 fL (7.4-10.4) 09/18/24: Neut % (Auto) 61.8 % 09/18/24: Lymph % (Auto) 31.9 % 09/18/24: [place] % (Auto) 4.9 % 09/18/24: Eos % (Auto) 0.7 % 09/18/24 Baso % (Auto) 0.5 % 09/18/24 Neut # (Auto) 3.41 10^3/uL (1.8-7.7) 09/18/24 Lymph # (Auto) 1.8 10^3/uL (0.8-4.8) 09/18/24 Sanders # (Auto) 0.3 10^3/uL (0.2-0.9) 09/18/24 17: Eos # (Auto) 0.0 10^3/uL (0.0-0.8) 09/18/24 17: Baso # (Auto) 0.0 10^3/uL (0.0-0.1) 09/18/24 17: Nucleated RBC % (auto) 0 % 09/18/24: Nucleated RBCs # 0.0 /100WBC 09/18/24: Sodium 137 mmol/L (136-145) 09/18/24: Potassium 4.2 mmol/L (3.5-5.1) 09/18/24: Chloride 101 mmol/L (98-107) 09/18/24: Carbon Dioxide 27 mmol/L (22-29) 09/18/24: Anion Gap 13.2 (5-19) 09/18/24: BUN 12 mg/dL (6-20) 09/18/24: Creatinine 0.8 mg/dL (0.7-1.2) 09/18/24: GFR Calculation 119.8 mL/min (90-130) 09/18/24: Glucose 105 mg/dL (65-115) 09/18/24: Calculated Osmolality 284 mOsm/kg (285-295) L 09/18/24: Calcium 9.5 mg/dL (8.5-10.5) 09/18/24: Total Bilirubin 0.8 mg/dL (0.15-1.2) 09/18/24: AST 27 U/L (0-40) 09/18/24: ALT 34 U/L (0-41) 09/18/24: Alkaline Phosphatase 95 U/L (40-130) 09/18/24: C-Reactive Protein 3.0 mg/L (0.0-4.9) 09/18/24: Total Protein 7.5 g/dL (6.6-8.7) 09/18/24: Albumin 4.6 g/dL (3.5-5.2) 09/18/24: Globulin 2.9 g/dL (1.3-4.6) 09/18/24 17:28 Urine Color Yellow (Yellow) 09/18/24 16:34 Urine Appearance Clear (CLEAR) 09/18/24 16:34 Urine pH 5.5 (5-7) 09/18/24 16:34 Ur Specific [place] 1.022 (1.005-1.030) 09/18/24 16:34 Urine Protein Negative (Negative) 09/18/24 16:34 Urine Glucose (UA) Negative (Normal) 09/18/24 16:34 Urine Ketones Negative (Negative) 09/18/24 16:34 Urine Blood Negative (Negative) 09/18/24 16:34 Urine Nitrate Negative (Negative) 09/18/24 16:34 Urine Bilirubin Negative (Negative) 09/18/24 16:34 Urine Urobilinogen 0.2 mg/dL (Negative) 09/18/24 16:34 Ur Leukocyte Esterase 1+ (Negative) A 09/18/24 16:34 Urine RBC 0-2 /hpf (0-2) 09/18/24 16:34 Urine WBC 51-100 /hpf (0-5) H 09/18/24 16:34 Ur Squamous Epith Cells 0-5 /hpf (0-5) 09/18/24 16:34 Amorphous Sediment Not Reportable 09/18/24 16:34 Urine Bacteria None seen /hpf (NONE) 09/18/24 16:34 Hyaline Casts 1.21 /lpf 09/18/24 16:34 No radiology studies performed this visit Discharge Plan Discharge Patient Disposition: Home Clinical Impression: Urinary tract infection Qualifiers: Urinary tract infection type: acute cystitis Hematuria presence: without hematuria Qualified Code(s): N30.00 - Acute cystitis without hematuria Condition: Stable Prescriptions: New doxycycline hyclate 100 mg tablet 100 mg PO BID 10 Days Qty: 20 0RF No Action escitalopram oxalate [Lexapro] 20 mg tablet 20 mg PO DAILY Qty: 90 1RF trazodone 50 mg tablet 50 mg PO .HS PRN (Reason: insomnia) Qty: 90 1RF cetirizine [Zyrtec] 10 mg tablet 10 mg PO DAILY PRN (Reason: allergy symptoms) Qty: 90 0RF fluticasone propionate [Flonase Allergy Relief] 50 mcg/actuation spray,suspension 2 spray intranasal DAILY Qty: 16 0RF Rx Instructions: administer into each nostril doxycycline hyclate 100 mg capsule 100 mg PO BID 10 Days Qty: 20 0RF ibuprofen 600 mg tablet 600 mg PO Q6H PRN (Reason: fever or pain) Qty: 40 0RF Discharge Orders: Discharge ED (Routine); Ordered 09/18/24 Ordered By: Fritz Bui Patient Instructions: Urinary Tract Infection in Men (ED) Activity Restrictions/Additional Instructions: Take antibiotics as prescribed. Drink plenty of fluids. Return with any worsening of pain, high fever, nausea or vomiting, or other concerning symptoms. Coding Level of Care Code ED Postal Delivery Officer for Kaushal Rosa
[2024-09-18 17:36] LABS: Basophils % 0.5 %; Eosinophils % 0.7 %; Hematocrit 44.2 % (37-53); Lymphocytes # 1.8 10^3/uL (0.8-4.8); Lymphocytes % 31.9 %; Mean Corpuscular HGB Conc 33.9 g/dL (30-55); Mean Corpuscular Hemoglobin 29.5 pg (27-33); Mean Platelet Volume 9.8 fL (7.4-10.4); Monocytes # 0.3 10^3/uL (0.2-0.9); Monocytes % 4.9 %; Neutrophils # 3.41 10^3/uL (1.8-7.7); Neutrophils % 61.8 %; Nucleated Red Blood Cells % 0 %; Platelet Count 216 10^3/cmm (157-399); Red Blood Count 5.08 10^6/uL (3.85-5.65); Red Cell Distribution Width 11.8 % (12.1-15.1); White Blood Count 5.52 10^3/uL (3.29-11.43)
[2024-09-18 18:06] LABS: Alanine Aminotransferase 34 U/L (0-41); Albumin Level 4.6 g/dL (3.5-5.2); Alkaline Phosphatase 95 U/L (40-130); Anion Gap 13.2 (5-19); Aspartate Amino Transferase 27 U/L (0-40); Blood Urea Nitrogen 12 mg/dL (6-20); Calcium 9.5 mg/dL (8.5-10.5); Carbon Dioxide 27 mmol/L (22-29); Chloride 101 mmol/L (98-107); Creatinine Clr Calc Pharmacy 137.7618; Globulin 2.9 g/dL (1.3-4.6); Glomerular Filtration Rate 119.8 mL/min (90-130); Glucose 105 mg/dL (65-115); Osmolality Calculated 284 mOsm/kg (285-295); Potassium 4.2 mmol/L (3.5-5.1); Sodium 137 mmol/L (136-145); Total Bilirubin 0.8 mg/dL (0.15-1.2); Total Protein 7.5 g/dL (6.6-8.7)
[2024-09-18] MEDS: cefTRIAXone 1,000 MG in water for injection-sterile 2.1 ML 999 MG IM (18:30)
== END 2024-09-18 18:32 | disposition home or self-care (01) ==
PROVIDERS: Emergency Medicine; Emergency Provider Physician Assistant
DX: N30.00 Acute cystitis without hematuria (principal)
CPT/HCPCS: 36415; 80053; 81001; 85025; 86140; 87086; 96372; 99284; J0696

== ENCOUNTER 2025-01-02 13:27 | Emergency (ER) | payer BC, MEDICAID, SELFPAY ==
[2025-01-02 13:38] VITALS: BP 114/57; PULSE 88; RESP 16; TEMP 36.8; O2SAT 98; BMI 20.7
--- NOTE | 2025-01-02 14:36 | XRR_ITS ---
PROCEDURE INFORMATION: Exam: XR Chest Exam date and time: 01/02/2025 2:39 PM Age: 24 years old Clinical indication: Cough; Additional info: Cough, congestion TECHNIQUE: Imaging protocol: Radiologic exam of the chest. Views: 1 view. COMPARISON: CR XR chest 1V [id number] 12/10/2018 18:35 FINDINGS: Lungs: Lungs appear to be relatively clear on this portable exam. No consolidation. Pleural spaces: Costophrenic angles are well demarcated. No pleural effusion. No pneumothorax. Heart/Mediastinum: Unremarkable. No cardiomegaly. Bones/joints: The frontal view demonstrates mild convexity of the thoracolumbar spine to be directed to the left. This is felt to be positional. Other findings: Possible small calcifications may be present over the left renal area better appreciated the earlier CT 08/27/2022. XR/XR chest 1V portable [id number] IMPRESSION: 1. No acute portable chest findings. 2. Suspect left renal calcifications.
--- NOTE | 2025-01-02 14:52 | W.ED.URI ---
HPI - URI/Sore Throat General: Chief Complaint: Upper Respiratory Infection Stated Complaint: head congestion, sore throat Time Seen by Provider: 01/02/25 13:49 Source: patient Mode of arrival: ambulatory Limitations: no limitations History of Present Illness: 24yo male presents with cough, congestion, and sore throat that has been ongoing for the past 4 days. States that he had a coughing fit so bad that it caused some shortness of breath. Patient reports a history of frequent ear infections. States low-grade fever for the first 2 days, but nothing since. Denies difficulty breathing, persistent shortness of breath, chest pain, any other concerns at this time. Associated symptoms: Reports fever(s) (low grade, resolved); Deny abdominal pain or chest pain Related Data Home Medications ?Medication ?Instructions ?Recorded ?Confirmed methocarbamol 500 mg tablet 500 mg PO TID 01/02/25 01/02/25 Previous Rx's ?Medication ?Instructions ?Recorded pseudoephedrine HCl 120 mg 120 mg PO Q12H #10 tabs 01/02/25 tablet,extended release Allergies Allergy/AdvReac Type Severity Reaction Status Date / Time azithromycin (From Zithromax) Allergy Intermediate ALGY-Rash Verified 06/29/24 14:30 cefuroxime Allergy Intermediate ALGY-Rash Verified 06/29/24 14:30 Penicillins Allergy Intermediate ALGY-Rash Verified 06/29/24 14:30 Review of Systems Const: Reports: fever(s) (low grade, resolved) ENMT: Reports: throat pain Card: Denies: chest pain Resp: Reports: dyspnea (intermittent) and non-productive cough GI: Denies: abdominal pain PFSH ED PFSH: Medical History Cannabis use disorder, severe, dependence Psychiatric care Surgical History History of myringotomy Bi tube placement x2 Social History Smoking and tobacco/nicotine status: never used tobacco/nicotine Second hand smoke exposure: No Alcohol intake: current Alcohol intake frequency: holidays/special occasions only Alcohol type: hard liquor Substance/Drug Use: former Date of last use: marijuana - last used 06/2022. everything else- over 8 months. Adopted: No Marital status: Single Highest education level completed: High School Graduate Current occupational status: employed Physical Exam Const: COMMON NORMALS: no acute distress, patient oriented x3, healthy appearing and alert GENERAL APPEARANCE: cooperative ORIENTATION/CONSCIOUSNESS: Yes awake OTHER: Patient is ambulatory to the exam room unassisted. He is sitting upright on the stretcher in no acute distress. He is able to give history with no difficulty. He is interactive with exam appropriately. No family is at bedside at time of exam HENMT: COMMON NORMALS: normocephalic, atraumatic, external ears normal and TM's normal bilaterally HEAD & SCALP: normocephalic and atraumatic NOSE: Other nasal findings present (nasal congestion) EXTERNAL EAR: Yes external ears normal TYMPANIC MEMBRANE: TM's normal bilaterally THROAT: uvula midline and postnasal drainage Chest: CHEST: Yes Symmetrical chest wall rise Resp: COMMON NORMALS: normal respiratory effort and clear to auscultation bilaterally EFFORT & INSPECTION: Yes able to speak in complete sentences AUSCULTATION: clear to auscultation bilaterally Cardio: COMMON NORMALS: regular rate RATE: regular rate Extremity: COMMON NORMALS: full ROM NARRATIVE EXTREMITY EXAM: MAEW Neuro: COMMON NORMALS: patient oriented x3 SENSORIUM/ORIENTATION: Yes alert Course Vital Signs: Vital signs: Vital Signs Temperature 98.3 F 01/02/25 13:38 Pulse Rate 88 01/02/25 13:38 Respiratory Rate 16 01/02/25 13:38 Blood Pressure 114/57 01/02/25 13:38 Pulse Oximetry 98 01/02/25 13:38 Oxygen Delivery Me thod Room Air 01/02/25 13:38 MDM - URI/Sore Throat Medical Decision Making 24yo male presents with cough, congestion, and sore throat that has been ongoing for the past 4 days. States that he had a coughing fit so bad that it caused some shortness of breath. Patient reports a history of frequent ear infections. States low-grade fever for the first 2 days, but nothing since. Denies difficulty breathing, persistent shortness of breath, chest pain, any other concerns at this time. Patient is nontoxic in appearance. Vital signs are stable. Discussed likely viral URI. CXR obtained due to complaints of shortness of breath. CXR unremarkable, possible renal stones. Discussed findings with patient. Patient has previously received pseudoephedrine for upper respiratory infections and tolerated well. Will proceed with same today. Discussed known side effects with patient. Encouraged increasing fluid intake and continuing to monitor symptoms. Recommend follow-up with primary care, call in 2 to 3 days with an update of symptoms and to discuss a recheck. Return precautions provided. Patient states understanding and has no further questions or concerns at this time. Differential Diagnosis Likely upper respiratory infection, otitis media, viral infection and bronchitis Medical Records I reviewed the patient's medical records. Lab Data Radiology Impressions Chest X-Ray 01/02/25 14:36 IMPRESSION: 1. No acute portable chest findings. 2. Suspect left renal calcifications. All radiology interpretation(s) finalized by discharge Discharge Plan Discharge Patient Disposition: Home Clinical Impression: Upper respiratory infection Qualifiers: URI type: unspecified viral URI Qualified Code(s): J06.9 - Acute upper respiratory infection, unspecified Condition: Stable Prescriptions: New pseudoephedrine HCl 120 mg tablet extended release 120 mg PO Q12H Qty: 10 0RF No Action methocarbamol 500 mg tablet 500 mg PO TID Discharge Orders: Discharge ED (Routine); Ordered 01/02/25 Ordered By: Dudley Mendez Discharge Diet: Usual diet Discharge Activity: Resume usual activity Patient Instructions: Upper Respiratory Infection (ED), Pain Management Activity Restrictions/Additional Instructions: No acute abnormalities noted on chest x-ray today Your illness is likely an upper respiratory infection that is typically viral in nature Prescription of pseudoephedrine has been sent to the pharmacy to help with the nasal congestion Follow-up with primary care, call in 2 to 3 days with an update of symptoms and to discuss a recheck Return to the emergency department if any rapid worsening symptoms, difficulty breathing, persistent shortness of breath, chest pain, and as needed Print Language: Azeri Coding Level of Care Code ED Vending Machine Filler for Kaushal Rosa
[2025-01-02 15:44] VITALS: BP 110/61; PULSE 74; O2SAT 98
== END 2025-01-02 15:45 | disposition home or self-care (01) ==
PROVIDERS: Emergency Provider Nurse Practitioner
DX: J06.9 Acute upper respiratory infection, unspecified (principal)
CPT/HCPCS: 71045; 99283

== ENCOUNTER → 2025-05-10 13:04 | Outpatient (BNVA) | payer OTHER, SELFPAY | PROVIDERS: Visit Provider Psychiatry & Neurology Psychiatry | DX: F43.22 Adjustment disorder with anxiety (principal) | CPT/HCPCS: 80061; 83036 ==

== ENCOUNTER 2025-06-03 16:24 | Emergency (ER) | payer BC, MEDICAID, SELFPAY ==
[2025-05-14 11:16] VITALS: BP 111/62; BMI 19.5
[2025-06-03 16:30] VITALS: BP 137/102; PULSE 78; RESP 17; TEMP 36.4; O2SAT 100; BMI 19.6
--- NOTE | 2025-06-03 16:43 | CTR_ITS ---
PROCEDURE INFORMATION: Exam: CT Abdomen And Pelvis Without Contrast Exam date and time: 06/03/2025 5:11 PM Age: 25 years old Clinical indication: Abdominal pain; Left; Lt flank pain radiating to anterior abdomen TECHNIQUE: Imaging protocol: Computed tomography of the abdomen and pelvis without contrast. Radiation optimization: All CT scans at this facility use at least one of these dose optimization techniques: automated exposure control; mA and/or kV adjustment per patient size (includes targeted exams where dose is matched to clinical indication); or iterative reconstruction. COMPARISON: CT kidney stone [id number] 08/27/2022 10:31 PM RADIATION DOSE METRICS: Total DLP (mGy-cm): 332.13 FINDINGS: Liver: Normal. No mass. Gallbladder and biliary ducts: Normal. No calcified stones. No ductal dilation. Pancreas: Normal. No ductal dilation. Spleen: Normal. No splenomegaly. Adrenal glands: Normal. No mass. Kidneys and ureters: Left nephrolithiasis, with the largest stone in the upper pole measuring 12 mm. Single 1 mm calculus in the right kidney. No ureteral calculi. No hydronephrosis or hydroureter. Renal mass is not identified. Stomach and bowel: Numerous small bowel loops in the left abdomen are mildly distended with fluid. Small bowel dilatation is not identified. Colon caliber is normal. No pericolonic inflammatory changes. Appendix: Appendix is not seen but there is no pericecal inflammatory change. Intraperitoneal space: No free intraperitoneal fluid or gas. Vasculature: Unremarkable. No abdominal aortic aneurysm. Lymph nodes: Unremarkable. No enlarged lymph nodes. Urinary bladder: Bladder is collapsed, but is otherwise unremarkable. Reproductive: Visualized portions of the male reproductive tract are unremarkable, though routine CT is limited in this regard. Bones/joints: Unremarkable. No acute fracture. Soft tissues: Unremarkable. CT/CT kidney stone [id number] IMPRESSION: 1. Left nephrolithiasis, with the largest stone in the upper pole measuring 12 mm. No obstructive uropathy. 2. Fluid-filled distension of small bowel loops in the left abdomen which could reflect ileus or enteritis.
[2025-06-03 17:23] LABS: Glucose Urine UA Negative (Normal); Nitrate Urine Negative (Negative); Specific Gravity, Urine 1.021 (1.005-1.030)
[2025-06-03 18:08] LABS: Hematocrit 42.5 % (37-53); Hemoglobin 14.50 g/dL (11.27-16.99); Mean Corpuscular HGB Conc 34.1 g/dL (30-55); Mean Corpuscular Hemoglobin 30.1 pg (27-33); Mean Corpuscular Volume 88.2 fl (82-101); Nucleated Red Blood Cells % 0 %; Platelet Count 212 10^3/cmm (157-399); Red Blood Count 4.82 10^6/uL (3.85-5.65); White Blood Count 11.18 10^3/uL (3.29-11.43)
--- NOTE | 2025-06-03 18:19 | ED_ITS ---
HPI - Abdominal Pain 2 General: Chief Complaint: Abdominal Pain Stated Complaint: lt abd pain Time Seen by Provider: 06/03/25 18:03 Source: patient Mode of arrival: ambulatory Limitations: no limitations History of Present Illness: Patient is a 25-year-old male who presents to the emergency department complaining of the left back and flank pain beginning yesterday. Reports history of kidney stones that this feels similar. He is noting chills and nausea. States he does not see urology. No dysuria or blood in his urine. Has been taking ibuprofen for pain but no relief. States pain began in the back and has now since wraparound to the left lower quadrant. No chest pain or shortness of breath. Vitals are stable at this time he is nontoxic-appearing. MD elicited complaint: abdominal pain Onset (ago): day(s) Pain Consistency: constant Location: L flank Severity: similar to previous episodes Context: other (History of kidney stones) Associated Symptoms: Reports chills and nausea; Denies bloating, change in stool character, constipation, diarrhea, dysuria, fever(s), hematochezia, hematuria and vomiting Related Data Previous Rx's ?Medication ?Instructions ?Recorded escitalopram oxalate 20 mg tablet 20 mg PO DAILY #30 t abs 05/19/25 (Lexapro) ketorolac 10 mg tablet 10 mg PO Q8H PRN pain 5 days #15 06/03/25 tabs ondansetron 4 mg disintegrating 4 mg PO TID PRN nausea and 06/03/25 tablet vomiting #30 tabs Allergies Allergy/AdvReac Type Severity Reaction Status Date / Time venom-wasp Allergy Severe ALGY-Difficulty Verified 05/19/25 08:30 Breathing azithromycin (From Zithromax) Allergy Intermediate ALGY-Rash Verified 05/19/25 08:30 cefuroxime Allergy Intermediate ALGY-Rash Verified 05/19/25 08:30 Penicillins Allergy Intermediate ALGY-Rash Verified 05/19/25 08:30 Review of Systems 2 General: Reports: 10 or more systems reviewed and unremarkable except in HPI and below Const: Reports: chills; Denies: fever(s), change in appetite, change in weight or diaphoresis ENMT: Denies: throat pain or hoarseness Card: Denies: chest pain, palpitations or lightheadedness Resp: Denies: dyspnea, productive cough or wheezing GI: Reports: abdominal pain and nausea; Denies: vomiting, diarrhea, constipation, bloating, change in stool character or hematochezia : Reports: flank pain; Denies: difficulty urinating, dysuria, urinary frequency, urinary urgency or hematuria Musc: Reports: back pain; Denies: neck pain Skin/Breast: Denies: rash or new lesions Neuro: Denies: headache(s) or dizziness PFSH ED 2 PFSH: Medical History Cannabis use disorder, severe, dependence Psychiatric care Surgical History History of myringotomy Bi tube placement x2 Family History Other Cancer Diabetes Hypertension Seizure disorder Social History Smoking and tobacco/nicotine status: never used tobacco/nicotine Second hand smoke exposure: No Alcohol intake: never Substance/Drug Use: current Substance/Drug use frequency: few times a month Adopted: No Caregiver/support person: No Lives independently: Yes Household members: spouse and children Housing: Manufactured/Mobile home Marital status: Number of children: 3 Number of grandchildren: 0 Highest education level completed: Some College, No Degree service: No Current occupational status: employed Current occupation: [employer] Current occupational exposures/hazards: No Pets and animals: Yes Pets & animals: cat(s), dog(s) and snake(s) Pets & animal details: brittneyard Leisure activites: games, hunting and fishing Sexually active: Yes Do you think of yourself as: Straight/Heterosexual Current gender identity: Male Meme/Scientologist: None Special meme needs: No Agree to transfusion: Yes Physical Exam 2 Const: COMMON NORMALS: no acute distress, average body habitus, patient oriented x3, no limitations, healthy appearing, alert and well nourished G ENERAL APPEARANCE: cooperative and comfortable ORIENTATION/CONSCIOUSNESS: Yes awake OTHER: Nontoxic-appearing Neck/C-Spine: COMMON NORMALS: full ROM, supple, no meningeal signs and no JVD Resp: COMMON NORMALS: normal respiratory effort, No retractions, No use of accessory muscles and clear to auscultation bilaterally AUSCULTATION: clear to auscultation bilaterally, no crackles, no rales, no rhonchi and no wheezes Cardio: COMMON NORMALS: no JVD, regular rate, regular rhythm, No gallops present (Cardio), No clicks present (Cardio), No murmurs present (Cardio), No rub (Cardio) and Peripheral pulses 2+ throughout RATE: regular rate R HYTHM: regular rhythm PERIPHERAL PULSES: Peripheral pulses 2+ throughout GI: COMMON NORMALS: Normal to inspection, nondistended, normoactive bowel sounds present, Soft to palpation, non-tender, No hepatosplenomegaly present and no masses AUSCULTATION: Yes normoactive bowel sounds PALPATION: Yes Soft to palpation, No Guarding due to palpation present (GI), No Rigid due to palpation and Yes No hepatosplenomegaly present RECTAL EXAM: Yes deferred : BLADDER/KIDNEY EXAM: Yes CVA tenderness on the left Back/Pelvis: GENERAL BACK: Yes CVA tenderness Extremity: COMMON NORMALS: normal to inspection and full ROM Neuro: COMMON NORMALS: patient oriented x3, moves all extremities, no focal motor deficits and no sensory deficits noted SENSORIUM/ORIENTATION: Yes alert MENINGEAL SIGNS: Yes no meningeal signs Psych: COMMON NORMALS: mental status grossly normal, cooperative and speech normal SPEECH: Yes normal speech Skin: COMMON NORMALS: no rashes or lesions noted GENERAL SKIN EXAM: no rashes or lesions noted Course 2 Vital Signs: Vital signs: Vital Signs Temperature 97.5 F L 06/03/25 16:30 Pulse Rate 78 06/03/25 16:30 Respiratory Rate 17 06/03/25 16:30 Blood Pressure 137/102 06/03/25 16:30 Pulse Oximetry 100 06/03/25 16:30 Oxygen Delivery Me thod Room Air 06/03/25 16:30 MDM - Abdominal Pain Medical Decision Making Patient presented for left back and flank pain, reports history of kidney stones. He had noted some subjective chills and nausea. Vital stable on arrival, the exam was reassuring as he was nontoxic-appearing, though there was left CVA tenderness on palpation. His blood work and urinalysis were negative. Abdomen/pelvis CT showing left nephrolithiasis but no obstructive uropathy. He does not see urology so I will refer him due to his history of kidney stones, but overall stable for discharge home. Lab Data 06/03/25 18:00 06/03/25 18:00 Labs/Radiology: Radiology Impressions Abdomen/Pelvis CT 06/03/25 16:43 IMPRESSION: 1. Left nephrolithiasis, with the largest stone in the upper pole measuring 12 mm. No obstructive uropathy. 2. Fluid-filled distension of small bowel loops in the left abdomen which could reflect ileus or enteritis. Laboratory Results WBC 11.18 10^3/uL (3.29-11.43) 06/03/25 18:00 RBC 4.82 10^6/uL (3.85-5.65) 06/03/25 18:00 Hgb 14.50 g/dL (11.27-16.99) 06/03/25 18:00 Hct 42.5 % (37-53) 06/03/25 18:00 MCV 88.2 fl (82-101) 06/03/25 18:00 MCH 30.1 pg (27-33) 06/03/25 18:00 MCHC 34.1 g/dL (30-55) 06/03/25 18:00 RDW 11.8 % (12.1-15.1) L 06/03/25 18:00 Plt Count 212 10^3/cmm (157-399) 06/03/25 18:00 MPV 9.8 fL (7.4-10.4) 06/03/25 18:00 Neut % (Auto) 88.1 % 06/03/25 18:00 Lymph % (Auto) 6.4 % 06/03/25 18:00 [place] % (Auto) 4.5 % 06/03/25 18:00 Eos % (Auto) 0.4 % 06/03/25 18:00 Baso % (Auto) 0.2 % 06/03/25 18:00 Neut # (Auto) 9.85 10^3/uL (1.8-7.7) H 06/03/25 18:00 Lymph # (Auto) 0.7 10^3/uL (0.8-4.8) L 06/03/25 18:00 [place] # (Auto) 0.5 10^3/uL (0.2-0.9) 06/03/25 18:00 Eos # (Auto) 0.1 10^3/uL (0.0-0.8) 06/03/25 18:00 Baso # (Auto) 0.0 10^3/uL (0.0-0.1) 06/03/25 18:00 Nucleated RBC % (auto) 0 % 06/03/25 18:00 Nucleated RBCs # 0.0 /100WBC 06/03/25 18:00 Sodium 139 mmol/L (136-145) 06/03/25 18:00 Potassium 4.4 mmol/L (3.5-5.1) 06/03/25 18:00 Chloride 103 mmol/L (98-107) 06/03/25 18:00 Carbon Dioxide 26 mmol/L (22-29) 06/03/25 18:00 Anion Gap 14.4 (5-19) 06/03/25 18:00 BUN 22 mg/dL (6-20) H 06/03/25 18:00 Creatinine 0.9 mg/dL (0.7-1.2) 06/03/25 18:00 GFR Calculation 103.7 mL/min (90-130) 06/03/25 18:00 Glucose 97 mg/dL (65-115) 06/03/25 18:00 Calculated Osmolality 291 mOsm/kg (285-295) 06/03/25 18:00 Calcium 9.5 mg/dL (8.5-10.5) 06/03/25 18:00 Total Bilirubin 1.4 mg/dL (0.15-1.2) H 06/03/25 18:00 AST 17 U/L (0-40) 06/03/25 18:00 ALT 9 U/L (0-41) 06/03/25 18:00 Alkaline Phosphatase 72 U/L (40-130) 06/03/25 18:00 Total Protein 7.6 g/dL (6.6-8.7) 06/03/25 18:00 Albumin 4.8 g/dL (3.5-5.2) 06/03/25 18:00 Globulin 2.8 g/dL (1.3-4.6) 06/03/25 18:00 Urine Color Yellow (Yellow) 06/03/25 17:06 Urine Appearance Clear (CLEAR) 06/03/25 17:06 Urine pH 7.0 (5-7) 06/03/25 17:06 Ur Specific [place] 1.021 (1.005-1.030) 06/03/25 17:06 Urine Protein Negative (Negative) 06/03/25 17:06 Urine Glucose (UA) Negative (Normal) 06/03/25 17:06 Urine Ketones Trace (Negative) 06/03/25 17:06 Urine Blood Negative (Negative) 06/03/25 17:06 Urine Nitrate Negative (Negative) 06/03/25 17:06 Urine Bilirubin Negative (Negative) 06/03/25 17:06 Urine Urobilinogen 1.0 mg/dL (Negative) 06/03/25 17:06 Ur Leukocyte Esterase Negative (Negative) 06/03/25 17:06 Amorphous Sediment Not Reportable 06/03/25 17:06 All radiology interpretation(s) finalized by discharge Discharge Plan Discharge Patient Disposition: Home Clinical Impression: Left nephrolithiasis Condition: Stable Prescriptions: New ketorolac 10 mg tablet 10 mg PO Q8H PRN (Reason: pain) 5 Days Qty: 15 0RF ondansetron 4 mg tablet,disintegrating 4 mg PO TID PRN (Reason: nausea and vomiting) Qty: 30 0RF No Action escitalopram oxalate [Lexapro] 20 mg tablet 20 mg PO DAILY Qty: 30 2RF Discharge Orders: Discharge ED (Routine); Ordered 06/03/25 Ordered By: Fritz Bui Referrals: Isabel Tejeda DO [Primary Care Provider, [facility] OPERATOR] Patient Instructions: Patient Portal & Frank Instructions Activity Restrictions/Additional Instructions: Follow-up with urology, await call to schedule appointment. Take medications as prescribed. Return with any persistent fevers, vomiting, worsening pain, or any other concerns you have. Work note provided. Stand Alone Forms: Work/School Release Print Language: German Coding Level of Care Code ED Commercial Real Estate Assistant for Kaushal Rosa
[2025-06-03 18:24] LABS: Alanine Aminotransferase 9 U/L (0-41); Albumin Level 4.8 g/dL (3.5-5.2); Alkaline Phosphatase 72 U/L (40-130); Anion Gap 14.4 (5-19); Aspartate Amino Transferase 17 U/L (0-40); Blood Urea Nitrogen 22 mg/dL (6-20); Calcium 9.5 mg/dL (8.5-10.5); Carbon Dioxide 26 mmol/L (22-29); Chloride 103 mmol/L (98-107); Creatinine Clr Calc Pharmacy 119.1349; Globulin 2.8 g/dL (1.3-4.6); Glucose 97 mg/dL (65-115); Osmolality Calculated 291 mOsm/kg (285-295); Potassium 4.4 mmol/L (3.5-5.1); Sodium 139 mmol/L (136-145); Total Protein 7.6 g/dL (6.6-8.7)
--- NOTE | 2025-06-04 07:43 | DCPLANNER ---
faxed urology referral to [facility]. images pushed.
== END 2025-06-03 19:24 | disposition home or self-care (01) ==
PROVIDERS: Emergency Medicine; Emergency Provider Physician Assistant; PCP Family Medicine
DX: N20.0 Calculus of kidney (principal)
CPT/HCPCS: 36415; 74176; 80053; 81001; 85025; 99284; J9999; Q0162